=== PATIENT | female | born 1965 | race African-American/Black ===

== ENCOUNTER 2017-01-06 13:17 | Emergency (ER) | payer MEDICARE | END 2017-01-06 14:10 | disposition home or self-care (01) | LOC: SCSER 13:17 | DX: M54.5 Low back pain (principal); E78.5 Hyperlipidemia, unspecified; E11.9 Type 2 diabetes mellitus without complications; E66.9 Obesity, unspecified; F32.9 Major depressive disorder, single episode, unspecified; F17.210 Nicotine dependence, cigarettes, uncomplicated; K21.9 Gastro-esophageal reflux disease without esophagitis; I25.2 Old myocardial infarction; Z86.73 Personal history of transient ischemic attack (TIA), and cerebral infarction without residual deficits; Z85.850 Personal history of malignant neoplasm of thyroid; Z85.42 Personal history of malignant neoplasm of other parts of uterus | CPT/HCPCS: 99283 ==

== ENCOUNTER 2017-10-12 11:21 | Emergency (ER) | payer MEDICARE, MEDICAID ==
[2017-10-12] MEDS ORDERED: HYDROcodone/Acetaminophen 10/325 mg Tablet ONE (13:02)
--- NOTE | 2017-10-12 14:06 | RAD ---
LEFT WRIST 2 VIEWS: HISTORY: Injury. COMPARISON: None. FINDINGS: No acute fracture or malalignment. There is subtle widening of the scapholunate interval. Mild vascular calcifications. IMPRESSION: 1. Subtle widening of the scapholunate interval is age-indeterminate for acute injury. 2. Positive ulnar variance. 3. No acute fracture or malalignment. POS: [facility]
--- NOTE | 2017-10-12 14:07 | RAD ---
RADIOGRAPH LEFT ELBOW FOUR VIEWS: History: 52-year-old female status post acute traumatic injury to the left elbow from fall. FINDINGS: The lateral view is suboptimally positioned and therefore it is difficult to evaluate for displaced j oint capsule. There is no dislocation. No evidence of fracture or any other osseous abnormality. IMPRESSION: Negative. POS: [facility]
--- NOTE | 2017-10-12 14:08 | RAD ---
RADIOGRAPH LEFT ANKLE THREE VIEWS: Date: 10-12-17 History: 52-year-old female status post acute traumatic injury to the left ankle due to fall. FINDINGS: Ankle mortise is symmetrical. Talar dome is maintained. No fracture or subluxation. IMPRESSION: Negative. POS: [facility]
--- NOTE | 2017-10-12 14:09 | RAD ---
RADIOGRAPH LEFT KNEE THREE VIEWS: Date: 10-12-17 History: 52-year-old female status post acute traumatic injury to the left knee from fall. FINDINGS: There is no fracture or dislocation. No joint effusion. IMPRESSION: Negative. POS: [facility]
--- NOTE | 2017-10-12 14:12 | RAD ---
LEFT SHOULDER 3 VIEWS: Date: 10/12/17 HISTORY: Injury. HISTORY: Slip and fall. COMPARISON: Radiograph from 2013. FINDINGS: There appears to be an osseous defect of the posterior glenoid. This may be chronic in nature. The remainder of the shoulder is without acute fracture or malalignment. IMPRESSION: Osseous defect of the posterior glenoid, age indeterminate. This may reflect a prominent osteophyte v ersus an old injury. POS: [facility]
--- NOTE | 2017-10-12 14:15 | RAD ---
TWO VIEWS OF THE LEFT HIP: INDICATION: Slipped and fell with left hip pain. COMPARISON: None. FINDINGS: No acute fracture or subluxation is evident. There a well-circumscribed central lucency involving th e inferior femoral head suspicious for a prominent subchondral cyst-like abnormality. This appears s imilar to a comparison dated 07/20/14. There is mild degenerative arthrosis of the left hip. A phlebo lith can be seen in the left hemipelvis. IMPRESSION: 1. No acute osseous abnormality. 2. Stable subchondral cyst-like abnormality involving the inferior left femoral head. POS: [facility]
== END 2017-10-12 14:28 | disposition home or self-care (01) ==
LOC: ERS 11:21
DX: S43.402A Unspecified sprain of left shoulder joint, initial encounter (principal); S63.502A Unspecified sprain of left wrist, initial encounter; K21.9 Gastro-esophageal reflux disease without esophagitis; E78.5 Hyperlipidemia, unspecified; I25.2 Old myocardial infarction; E11.9 Type 2 diabetes mellitus without complications; I10 Essential (primary) hypertension; Z86.73 Personal history of transient ischemic attack (TIA), and cerebral infarction without residual deficits; F32.9 Major depressive disorder, single episode, unspecified; F17.210 Nicotine dependence, cigarettes, uncomplicated; Z79.899 Other long term (current) drug therapy; Z79.82 Long term (current) use of aspirin; Z79.4 Long term (current) use of insulin; Z71.6 Tobacco abuse counseling; W10.9XXA Fall (on) (from) unspecified stairs and steps, initial encounter
CPT/HCPCS: 29125; 99406

== ENCOUNTER 2018-06-02 18:02 | Emergency (ER) | payer MEDICARE, MEDICAID ==
[2018-06-02 18:47] LABS: Anisocytosis SLIGHT = 6-15 cells (100X) (0-5/hpf); Eosinophils 3 % (0-10); Hemoglobin 13.1 g/dL (12.0-16.0); Hypochromia SLIGHT = 6-15 cells (100X) (0-5/hpf); Lymphocytes 15 % (21-51); MDiff Complete? YES; Mean Corpuscular HGB CONC 30.4 g/dL (32.0-36.0); Mean Corpuscular Hemoglobin 24.2 pg (27.0-31.0); Mean Corpuscular Volume 79.6 fL (78.0-98.0); Mean Platelet Volume 9.3 fL (7.4-10.4); Monocytes 7 % (0-10); Neutrophil 71 % (42-75); Platelet Count 329 thou/uL (130-400); Platelet Morphology Comment Appears Adequate; Reactive Lymphocytes 4 % (0-10); White Blood Cell (WBC) Count 11.2 thou/uL (4.8-10.8)
[2018-06-02 18:55] LABS: ALT (SGPT) 16 U/L (8-55); AST (SGOT) 12 U/L (5-34); Alkaline Phosphatase 182 U/L (40-150); Anion Gap 17 mmol/L (10-20); BUN (Urea Nitrogen) 35 mg/dL (9.8-20.1); Bilirubin, Total 0.1 mg/dL (0.2-1.2); Calc. Creatinine Clearance 0 mL/min (70-130); Calcium 9.1 mg/dL (7.8-10.44); Carbon Dioxide 25 mmol/L (22-29); Chloride 102 mmol/L (98-107); Estimated GFR-MDRD 31; Glucose 244 mg/dL (70-105); Lipase 318 U/L (8-78); Potassium 4.3 mmol/L (3.5-5.1); Sodium 140 mmol/L (136-145)
--- NOTE | 2018-06-02 19:42 | CT ---
EXAM: Abdomen and pelvic CT scan with contrast: HISTORY: COMPARISON: 12/31/2016, 06/10/2012 FINDINGS: Visualized lung bases are clear. There is some minimal esophageal wall thickening of the distal esoph warren but stable in appearance from prior studies. Liver: Unremarkable. Gallbladder:Unremarkable. Pancreas:Unremarkable Spleen:Unremarkable. Adrenal glands:Unremarkable. Kidneys:No renal calculus or acute obstruction.No solid or cystic mass. There is some anterior superficial subcutaneous fat stranding worse on the right side with some assoc iated soft tissue gas, possibly related to prior injury or recent injection. No CT evidence for acute appendicitis. The urinary bladder is unremarkable. No abscess, adenopathy, or abnormal fluid collection within the abdomen or pelvis. IMPRESSION: Minimal wall thickening of the distal esophagus but overall stable. Superficial anterior cutaneous an d subcutaneous fat stranding and minimal right-sided subcutaneous gas density possibly from trauma or injection. Status post hysterectomy. No other acute process.
[2018-06-02 20:42] LABS: Bilirubin Negative (Negative); Blood, Urine Trace (Negative); Clarity Slightly Cloudy (Clear); Glucose, Urine (Dipstick) >=1000 mg/dL (Negative); Leukocyte Negative (Negative); Nitrite Negative (Negative); Protein, Urine (Dipstick) 100 mg/dL (Neg-Trace); Urobilinogen 0.2 mg/dL (0.2-1.0); pH, Urine 6.5 (5.0-9.0)
[2018-06-02 20:43] LABS: Specific Gravity, Urine 1.026 (1.002-1.036)
[2018-06-02 20:49] LABS: Bacteria/HPF 3+ HPF (None Seen); RBC/HPF 0-3 HPF (0-3); Squamous Epithelial 0-3 HPF (0-3)
[2018-06-02 20:50] LABS: Yeast-All Forms 1+ HPF (None Seen)
== END 2018-06-02 22:12 | disposition home or self-care (01) ==
LOC: SCSER 18:02
DX: K85.90 Acute pancreatitis without necrosis or infection, unspecified (principal); I12.9 Hypertensive chronic kidney disease with stage 1 through stage 4 chronic kidney disease, or unspecified chronic kidney disease; N18.9 Chronic kidney disease, unspecified; K21.9 Gastro-esophageal reflux disease without esophagitis; E78.5 Hyperlipidemia, unspecified; I25.2 Old myocardial infarction; E11.9 Type 2 diabetes mellitus without complications; Z86.73 Personal history of transient ischemic attack (TIA), and cerebral infarction without residual deficits; E66.9 Obesity, unspecified; F32.9 Major depressive disorder, single episode, unspecified; F17.210 Nicotine dependence, cigarettes, uncomplicated
CPT/HCPCS: 74177; 80053; 81003; 81015; 83690; 85025; 96360; 96361

== ENCOUNTER 2018-10-05 18:59 | Emergency (ER) | payer MEDICARE, MEDICAID | END 2018-10-05 19:35 | disposition home or self-care (01) | LOC: SCSER 18:59 | DX: K04.4 Acute apical periodontitis of pulpal origin (principal); K02.9 Dental caries, unspecified; K21.9 Gastro-esophageal reflux disease without esophagitis; E78.5 Hyperlipidemia, unspecified; E78.00 Pure hypercholesterolemia, unspecified; I25.2 Old myocardial infarction; Z86.73 Personal history of transient ischemic attack (TIA), and cerebral infarction without residual deficits; E66.9 Obesity, unspecified; F32.9 Major depressive disorder, single episode, unspecified; F17.210 Nicotine dependence, cigarettes, uncomplicated | CPT/HCPCS: 99283 ==

== ENCOUNTER 2019-01-06 12:52 | Observation (INO) | payer MEDICARE, MEDICAID ==
[2019-01-06 14:09] LABS: #Basophils 0.1 thou/uL (0.0-0.2); #Eosinphils 0.2 thou/uL (0.0-0.7); #Lymphocytes 2.9 thou/uL (1.20-3.40); #Monocytes 0.6 thou/uL (0.11-0.59); #Neutrophils 5.6 thou/uL (1.40-6.50); %Basophils 0.9 % (0.0-1.0); %Lymphocytes 31.1 % (21.0-51.0); Hemoglobin 13.8 g/dL (12.0-16.0); Mean Corpuscular HGB CONC 31.5 g/dL (32.0-36.0); Mean Corpuscular Hemoglobin 26.3 pg (27.0-31.0); Mean Corpuscular Volume 83.4 fL (78.0-98.0); Mean Platelet Volume 9.1 fL (7.4-10.4); Platelet Count 360 thou/uL (130-400); Red Blood Cell (RBC) Count 5.23 mill/uL (4.20-5.40); White Blood Cell (WBC) Count 9.3 thou/uL (4.8-10.8)
[2019-01-06 14:30] LABS: ALT (SGPT) 23 U/L (8-55); AST (SGOT) 20 U/L (5-34); Albumin 4.4 g/dL (3.5-5.0); Alkaline Phosphatase 198 U/L (40-110); Anion Gap 16 mmol/L (10-20); BUN (Urea Nitrogen) 20 mg/dL (9.8-20.1); Bilirubin, Total 0.2 mg/dL (0.2-1.2); CK (CPK) 170 U/L (29-168); Calc. Creatinine Clearance 0 mL/min (70-130); Calcium 10.2 mg/dL (7.8-10.44); Carbon Dioxide 24 mmol/L (22-29); Chloride 106 mmol/L (98-107); Estimated GFR-MDRD 34; Globulin 3.9 g/dL (2.4-3.5); Glucose 141 mg/dL (70-105); Lipase 55 U/L (8-78); Potassium 4.8 mmol/L (3.5-5.1); Protein, Total 8.3 g/dL (6.0-8.3); Sodium 141 mmol/L (136-145)
[2019-01-06 14:58] LABS: CKMB 2.7 ng/mL (0-6.6)
[2019-01-06] MEDS ORDERED: Aspirin Chewable 81 MG TAB ONE (15:38)
[2019-01-06] MEDS ORDERED: Nitroglycerin 2% Ointment 1 INCH/1 GM Packet ONE (15:38)
--- NOTE | 2019-01-06 16:00 | RAD ---
Chest AP view INDICATION: Chest pain shortness of breath COMPARISON: October 09, 2016 FINDINGS: Lungs:The lungs are clear Cardiac silhouette:Stable mild cardiomegaly Pulmonary vasculature:Normal Pleural spaces:No pleural effusion or pneumothorax is demonstrated. Upper abdomen:No abnormality seen. Osseous structures: No acute osseous abnormality. Additional findings:None. IMPRESSION: No acute cardiopulmonary abnormality.
[2019-01-06] MEDS ORDERED: Ondansetron ODT 4 MG TAB PO PRN (18:30)
[2019-01-06] MEDS ORDERED: Ondansetron PF 4 MG/2 ML Vial IVP PRN (18:30)
[2019-01-06] MEDS ORDERED: Dextrose 5% in Water 1,000 ML IV PRN (18:34)
[2019-01-06] MEDS ORDERED: Dextrose 50% Abboject 50 ML SYRINGE SLOW IVP PRN (18:34)
[2019-01-06] MEDS ORDERED: HumaLOG 300 UNITS/3 ML VIAL SC PRN ×3 (18:34→19:34)
--- NOTE | 2019-01-06 18:39 | RAD ---
Exam: Left foot 3 views: HISTORY: Aaron, wound, concern for osteomyelitis FINDINGS: Prominent anterior and dorsal soft tissue swelling of the lower leg and foot. There are some degenera tive changes. No acute fracture or dislocation. No overt bony erosive or destructive changes to suggest osteomyelitis. IMPRESSION: Prominent soft tissue swelling. If there is concern for osteomyelitis clinically, follow-up nonemerge nt MRI study should be considered.
[2019-01-06 18:43] VITALS: BMI 44.9
--- NOTE | 2019-01-06 18:52 | ULT ---
ULTRASOUND DOPPLER DUPLEX VENOUS LEFT LOWER EXTREMITY: DATE: 01/06/2019 HISTORY: 53-year-old female with left lower extremity pain TECHNIQUE: Grayscale, color-flow, and spectral analysis, of major veins of left lower extremity. FINDINGS: There is demonstration of blood flow with normal compressibility, of the left common femoral, profund a femoral, greater saphenous, femoral, popliteal, and posterior tibial, veins. IMPRESSION: Negative. No deep venous thrombosis of left lower extremity.
[2019-01-06] MEDS ORDERED: Nitroglycerin 0.4 MG TAB (25 Tab Bottle) SL PRN (19:30)
[2019-01-06 20:26] LABS: Lactic Acid 1.5 mmol/L (0.5-2.2)
[2019-01-06 20:30] LABS: Troponin I 0.034 ng/mL (< 0.028)
[2019-01-06] MEDS ORDERED: Vancomycin 1.5 GRAM/300 ML BAG 1.5 GM in Premix Bag 1 BAG IVPB SCH (20:30)
[2019-01-06] MEDS ORDERED: Atorvastatin Calcium 40 MG TAB PO SCH (21:00)
[2019-01-06] MEDS ORDERED: Non-Formulary Item 1 EACH (Insulin Glargine,Hum.Rec.Anlog [Lantus Solostar] 50 UNITS) SQ SCH (21:00)
[2019-01-06] MEDS: Carvedilol 25 MG TAB PO SCH (21:01)
[2019-01-06] MEDS: Famotidine/PF 20 mg/2ml Vial SLOW IVP SCH (21:03)
[2019-01-06] MEDS: Sodium Chloride 0.9% 1,000 ML IV SCH (21:09)
[2019-01-06] MEDS: Insulin Glargine 50 UNITS in Pre-Filled Syringe 1 EACH SC SCH (21:17)
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
[2019-01-06] MEDS: ceFAZolin 1 GM/D5W 1 GM in Premix Bag 1 BAG IVPB SCH (23:09)
[2019-01-07 05:13] LABS: #Basophils 0.1 thou/uL (0.0-0.2); #Eosinphils 0.2 thou/uL (0.0-0.7); #Lymphocytes 2.6 thou/uL (1.20-3.40); #Monocytes 0.8 thou/uL (0.11-0.59); #Neutrophils 6.2 thou/uL (1.40-6.50); %Basophils 0.5 % (0.0-1.0); %Eosinophils 1.9 % (0.0-10.0); %Lymphocytes 26.4 % (21.0-51.0); %Monocytes 8.1 % (0.0-10.0); %Neutrophils 63.1 % (42.0-75.0); Hemoglobin 11.1 g/dL (12.0-16.0); Mean Corpuscular HGB CONC 31.5 g/dL (32.0-36.0); Mean Corpuscular Hemoglobin 26.1 pg (27.0-31.0); Mean Corpuscular Volume 82.8 fL (78.0-98.0); Mean Platelet Volume 9.1 fL (7.4-10.4); Platelet Count 313 thou/uL (130-400); RBC Distribution Width 13.7 % (11.5-14.5); Red Blood Cell (RBC) Count 4.25 mill/uL (4.20-5.40); White Blood Cell (WBC) Count 9.9 thou/uL (4.8-10.8)
[2019-01-07 05:29] LABS: Anion Gap 12 mmol/L (10-20); BUN (Urea Nitrogen) 23 mg/dL (9.8-20.1); Calc. Creatinine Clearance 60 mL/min (70-130); Carbon Dioxide 25 mmol/L (22-29); Chloride 109 mmol/L (98-107); Estimated GFR-MDRD 35; Glucose 188 mg/dL (70-105); Potassium 4.3 mmol/L (3.5-5.1); Sodium 142 mmol/L (136-145)
[2019-01-07] MEDS: ceFAZolin 1 GM/D5W 1 GM in Premix Bag 1 BAG IVPB SCH (06:16)
--- NOTE | 2019-01-07 07:16 | RAD ---
Radiograph left leg tibia-fibula 2 views: HISTORY: 53-year-old female with soft tissue wound. Rule out osteomyelitis. FINDINGS: There is no periostitis, permeative lesion, osteolytic lesion, osteoblastic lesion, or fracture, invo lving the tibia or fibula. There is soft tissue edema. No subcutaneous emphysema identified. No soft tissue calcifications. IMPRESSION: 1. Soft tissue edema. 2. No osseous abnormality of tibia or fibula identified.
[2019-01-07] MEDS: Sodium Chloride 0.9% 1,000 ML IV SCH (07:37)
[2019-01-07] MEDS: HumaLOG 300 UNITS/3 ML VIAL SC SCH ×2 (07:39→11:43)
[2019-01-07] MEDS ORDERED: Spironolactone 25 MG TAB PO SCH (08:00)
[2019-01-07] MEDS: Famotidine/PF 20 mg/2ml Vial SLOW IVP SCH (08:51)
[2019-01-07] MEDS: Insulin Glargine 50 UNITS in Pre-Filled Syringe 1 EACH SC SCH (08:52)
[2019-01-07] MEDS: Carvedilol 25 MG TAB PO SCH (08:53)
[2019-01-07] MEDS ORDERED: Clopidogrel Bisulfate 75 MG TAB PO SCH (09:00)
[2019-01-07] MEDS ORDERED: Losartan 25 MG TAB PO SCH (09:00)
[2019-01-07] MEDS ORDERED: Metolazone 5 MG TAB PO SCH (09:00)
[2019-01-07 11:08] LABS: Creatinine, Urine 42.33 mg/dL (47-110)
--- NOTE | 2019-01-07 11:50 | ULT ---
Exam: Bilateral renal ultrasound complete: HISTORY: Acute kidney injury COMPARISON: None FINDINGS: Right kidney: 10.3 x 4.4 x 5.3 cm Left kidney: 10.6 x 6.4 x 6.5 cm No renal hydronephrosis. No evidence for abnormal perinephric process. No solid or cystic renal mass. Urinary bladder wall is somewhat thickened up to 0.6 cm with some possible debris in the dependent po rtion, nonspecific. IMPRESSION: No renal hydronephrosis. Possible mild urinary bladder wall thickening and minimal debris.
[2019-01-07] MEDS ORDERED: Nicotine 14 MG PATCH TOP SCH (12:00)
[2019-01-07 12:39] VITALS: BP 146/72; TEMP 97.4
--- NOTE | 2019-01-07 17:45 | CON ---
DATE OF CONSULTATION: REASON FOR CONSULTATION: Elevated creatinine. HISTORY OF PRESENT ILLNESS: This is a very pleasant 53-year-old female, presented to the hospital late last night for chest pain. The patient's baseline creatinine increased from 1.28 to 1.8 today, even though she had a creatinine of 2.0 earlier this year. The patient denies no headache, numbness, tingling, or weakness. PAST MEDICAL HISTORY: Diabetes mellitus, GERD, CKD, hypertension, acute kidney injury, IL, diabetic neuropathy, CVA, depression, , exploratory laparotomy, hysterectomy. SOCIAL HISTORY: No alcohol or drug use. Smokes. FAMILY HISTORY: Family is negative for ESRD. ALLERGIES: REVIEWED. MEDICATIONS: Home medications, list reviewed. Hospital medications, list reviewed. REVIEW OF SYSTEMS: A 15-point review of systems was performed and was negative except for positives noted above. GENERAL: HEAD: NECK: No swelling or lumps. NOSE: No epistaxis or discharge. EYES: No diplopia or pain. RESPIRATORY: CARDIOVASCULAR: GASTROINTESTINAL: /[employer]: MUSCULOSKELETAL: No joint pain. NEUROPSYCHIATIC SYSTEMS: No suicidal ideation. No ideation. SKIN: Denies any rash or ulcer. CONSTITUTIONAL: No fever or chills. PHYSICAL EXAMINATION: CONSTITUTIONAL: The patient is awake and alert. VITAL SIGNS: Afebrile, pulse 75, breathing 16, blood pressure 160/95. GENERAL APPEARANCE AND MENTAL STATUS: Fair. HEAD/NECK: Normocephalic. Atraumatic. EYES: EOMI. No deformity. EARS: Clear. No ulcers. NOSE: Intact. No lesions. MOUTH: Clear. No discharge. THROAT: Clear. No exudate. LUNGS: Clear. No crackles. CARDIAC: S1, S2. No rub. ABDOMEN: Benign. Bowel sounds positive. GENITALIA/RECTUM: Flores absent. BACK/EXTREMITIES: Edema 0+. NEUROLOGICAL: Alert and motor intact. SKIN: LYMPHATICS: LABORATORY DATA: Reviewed. ASSESSMENT: 1. Acute kidney injury with chronic kidney disease, most likely due to progressive hypertensive diabetic disease. Decrease ARB, losartan to 50 mg, and follow creatinine. 2. Edema. Continue diuretics. 3. Congestive heart failure, stable. 4. Anemia, stable. 5. Medication based on GFR appropriate. No indication for dialysis. We will order renal imaging. Job ID: [id number]
[2019-01-07] MEDS ORDERED: Vancomycin HCl 1 GM in Premix Bag 1 BAG IVPB SCH (21:00)
== END 2019-01-07 13:56 | disposition home or self-care (01) ==
LOC: ERS 12:52 → 2SW 16:19
PROVIDERS: ADMIT Internal Medicine; ATTEND Internal Medicine
DX: R07.9 Chest pain, unspecified (principal); N17.9 Acute kidney failure, unspecified; I13.0 Hypertensive heart and chronic kidney disease with heart failure and stage 1 through stage 4 chronic kidney disease, or unspecified chronic kidney disease; I50.9 Heart failure, unspecified; N18.9 Chronic kidney disease, unspecified; E11.22 Type 2 diabetes mellitus with diabetic chronic kidney disease; K21.9 Gastro-esophageal reflux disease without esophagitis; E11.40 Type 2 diabetes mellitus with diabetic neuropathy, unspecified; F32.9 Major depressive disorder, single episode, unspecified; D64.9 Anemia, unspecified; R60.9 Edema, unspecified; E66.01 Morbid (severe) obesity due to excess calories; E78.5 Hyperlipidemia, unspecified; G89.29 Other chronic pain; M54.9 Dorsalgia, unspecified; F17.210 Nicotine dependence, cigarettes, uncomplicated; L03.116 Cellulitis of left lower limb; I25.2 Old myocardial infarction; I69.354 Hemiplegia and hemiparesis following cerebral infarction affecting left non-dominant side; Z68.42 Body mass index [BMI] 45.0-49.9, adult; Z79.02 Long term (current) use of antithrombotics/antiplatelets; Z79.4 Long term (current) use of insulin; Z79.899 Other long term (current) drug therapy; Z85.42 Personal history of malignant neoplasm of other parts of uterus; Z88.5 Allergy status to narcotic agent
CPT/HCPCS: 36415; 36416; 71045; 76770; 80048; 80053; 82550; 82553; 82570; 83605; 83690; 83735; 83880; 84156; 84484; 85025; 93005; 96361; 96365; 96375; 96376; G0378; J0690; J1815; S0028

== ENCOUNTER 2019-05-31 01:47 | Inpatient (IN) | payer MEDICARE, MEDICAID, OTHER ==
[2019-05-31 02:42] LABS: Lactic Acid 1.8 mmol/L (0.5-2.2)
[2019-05-31 03:32] LABS: Troponin I 1.259 ng/mL (< 0.028)
[2019-05-31] MEDS ORDERED: Nitroglycerin 2% Ointment 1 INCH/1 GM Packet ONE (03:37)
[2019-05-31] MEDS ORDERED: Enoxaparin Sodium 80 MG/0.8 ML SYRINGE ONE (03:51)
[2019-05-31] MEDS ORDERED: Enoxaparin Sodium 30 MG/0.3 ML SYRINGE ONE (03:51)
--- NOTE | 2019-05-31 05:15 | HP ---
PRIMARY CARE PHYSICIAN: [facility] in [place]. CHIEF COMPLAINT: Shortness of breath. HISTORY OF PRESENT ILLNESS: This is a 53-year-old female with a past medical history significant for coronary artery disease, inoperable as well as congestive heart failure and COPD, on chronic 4 L of oxygen at home. The patient reports that she intermittently has COPD exacerbations, will become acutely short of breath that does not respond to nebs and so goes into the hospital, usually is admitted to [facility]. The patient was in her normal state of health until yesterday afternoon. She then became acutely short of breath. This did not improve with inhalers or nebulizers at home, so she went to [facility]. There, she was evaluated and was given some inhalers and then was discharged back home. The patient did not improve at home and so, she called an ambulance. Per the ambulance, she was saturating in the 80s on oxygen. They brought her into the [place] [facility]. No noted wheezing, but she was noted to be tachypneic, increased work of breathing. In the [place] [facility], she had 10 puffs of albuterol MDI, was given steroids and then her shortness of breath resolved. She was noted to have congestion on her chest x-ray and had an elevated brain natriuretic peptide, elevated D-dimer, and an elevated troponin of 0.4. So, she was transferred here for further evaluation. The patient now states that she is feeling much better. No shortness of breath at this time on 3.5 L and saturating in the upper 90s to 100%. She denies any chest pain. She said that she does get swelling on and off in her ankles and feet and that the swelling has come back in the last few days. She states she has been compliant with her congestive heart failure medications including her daily Lasix as well as her diabetes medicines. REVIEW OF SYSTEMS: CONSTITUTIONAL: No fevers, no chills. EYES: No double vision or blurred vision. ENT: No congestion, drainage, or sore throat. CARDIOVASCULAR: No chest pain. No palpitations or racing heart. PULMONARY: See HPI. GASTROINTESTINAL: No abdominal pain. No nausea or vomiting. No diarrhea or constipation. GENITOURINARY: No dysuria or hematuria. MUSCULOSKELETAL: She has chronic diffuse body muscle aches from fibromyalgia, but no new complaints. SKIN: No rashes or other lesions that she has noted. NEUROLOGIC: She has chronic left-sided weakness since some strokes years ago and she has a congenital lazy eye. PAST MEDICAL HISTORY: 1. Diabetes mellitus, type 2, insulin dependent. 2. Coronary artery disease, not stentable per Dr. Lebron's catheterization some years ago. 3. Congestive heart failure, unknown type, with a normal ejection fraction in 2015. 4. Previous CVA with residual left-sided weakness. 5. Diabetic neuropathy. 6. Fibromyalgia. 7. Hypertension. 8. Hyperlipidemia. 9. Gastroesophageal reflux disease. 10. Morbid obesity. 11. Previous myocardial infarction. 12. Chronic back pain. 13. Uterine cancer, status post resection. PAST PSYCHIATRIC HISTORY: Depression. PAST SURGICAL HISTORY: 1. . 2. Exploratory laparotomy with removal of abdominal tumor. 3. Hysterectomy. SOCIAL HISTORY: The patient reports smoking half pack of cigarettes per day. No alcohol or illicit drug use. She is single. She is a full code. Reports that her sister would be her medical decision maker should she be incapacitated. Her name is Kimberly Ag. FAMILY HISTORY: Positive for mother with coronary artery disease. Father from diabetes, and multiple other family members with type 2 diabetes mellitus. ALLERGIES: TRAMADOL. CURRENT MEDICATIONS: 1. Atorvastatin 80 mg at night. 2. Aspirin 81 mg daily. 3. Carvedilol 25 mg twice a day. 4. Amlodipine 10 mg daily. 5. Furosemide 40 mg daily. 6. Plavix 75 mg daily. 7. Valsartan 320 mg daily. 8. Hydrochlorothiazide 12.5 mg daily. 9. Sertraline 50 mg daily. 10. Hydralazine 25 mg 3 times a day. 11. Trulicity 1.5 mg subcutaneous once a week. 12. Lyrica 100 mg 3 times a day. 13. Tylenol with Codeine No.3 one tablet every 4 hours as needed for pain. 14. Lantus SoloSTAR 40 units subcutaneous two times a day. 15. Humalog KwikPen, used to be on 20 units subcutaneous three times a day, but has stopped this recently. 16. Invokana, unknown dose. PHYSICAL EXAMINATION: VITAL SIGNS: Blood pressure 176/100, pulse 101, respirations 17, temperature 98.4, and O2 saturation 100% on 3.5 L. GENERAL: This is a well-developed, obese, female, in no acute distress. HEENT: Pupils are equal, round, and reactive to light. Oropharynx clear without lesions, erythema, or exudate. NECK: Supple. No lymphadenopathy. No thyroid nodules or enlargement. Difficult to appreciate if there is any JVD due to obesity. HEART: Regular rhythm. Mildly tachycardic. No murmurs, rubs, or gallops. LUNGS: Clear to auscultation bilaterally. No wheezes, crackles, or rhonchi. It is difficult to appreciate the breath sounds very well due to her obesity. ABDOMEN: Soft, obese, nontender to palpation. Normoactive bowel sounds. No hepatosplenomegaly or other masses. EXTREMITIES: No clubbing or cyanosis. She does have 1+ pitting edema of feet and ankles bilaterally. IMAGING DATA: EKG; the patient's EKG done in the emergency room shows sinus tachycardia with some flattening of the T-waves in the lateral leads, also with some left atrial enlargement. Chest x-ray; I did review the chest x-ray done in the emergency room along with the radiologist's report. It does show some mild congestive heart failure with increased pulmonary vascular markings. LABORATORY DATA: White blood cell count 16,000 with 84% neutrophils. The rest of the CBC was normal. Coagulation profile shows an elevated D-dimer of 1.46. Complete metabolic panel is notable for a chloride of 109, a carbon dioxide of 21, and creatinine of 1.74, which is chronic for her. Alkaline phosphatase of 145 and albumin of 3.3. The rest was normal. Brain natriuretic peptide was elevated at 484. This has never been elevated in our hospital on checks in the past including last December. Lactic acid was elevated at 2.7, recheck after transferred to our hospital here was 1.8. Troponin was elevated at 0.42 initially at [facility], recheck in our hospital just now was 1.2. CK-MB was elevated at 8.0. ASSESSMENT: 1. [id number] myocardial infarction. This is likely related to acute worsening of her congestive heart failure. No chest pain at this time. This may be a type 2 myocardial infarction. I will go ahead and start Lovenox subcu 1 mg/kg, and we will consult Dr. Apple in the morning. 2. Acute on chronic congestive heart failure. We will check an echocardiogram, and we will put on Lasix 40 mg IV twice a day and we will do a fluid restriction on her diet. 3. Chronic obstructive pulmonary disease exacerbation. We will continue Solu-Medrol 40 mg IV q.6 hours and inhalers, albuterol and Atrovent as well as continue her home oxygen. 4. Elevated D-dimer. We will check a V/Q scan due to her chronic renal insufficiency to make sure she does not have a pulmonary embolism setting off the above issues. 5. Chronic renal failure. The patient's creatinine seems about baseline right now. We will monitor closely. We will continue home medications. 6. Hypertension. Resume home medications. 7. Hyperlipidemia. Resume patient's statin. 8. Coronary artery disease. We will resume patient's aspirin and Plavix. 9. Gastroesophageal reflux disease. We will put the patient on Protonix daily. 10. Deep venous thrombosis prophylaxis. The patient is already on Lovenox. 11. Diabetes mellitus, type 2, insulin dependent. We will resume patient's Lantus, put on a moderate insulin sliding scale q.a.c. and at bedtime with fingerstick blood sugars and put on a diabetic diet. 12. Code status. The patient is a full code. Should she be incapacitated, her sister would be her medical decision maker. Job ID: [id number]
[2019-05-31] MEDS ORDERED: hydrALAZINE 20 MG/ML VIAL ONE (05:55)
[2019-05-31 06:24] LABS: Troponin I 3.206 ng/mL (< 0.028)
[2019-05-31] MEDS ORDERED: Acetaminophen 325 MG TAB PO PRN (07:28)
[2019-05-31] MEDS ORDERED: HumaLOG 300 UNITS/3 ML VIAL SC PRN (07:28)
[2019-05-31] MEDS ORDERED: Acetaminophen/Codeine 30-300mg Tablet PO PRN (07:28)
[2019-05-31] MEDS ORDERED: Guaifenesin DM 100-10/5 ML UDCUP PO PRN (07:28)
[2019-05-31] MEDS ORDERED: Acetaminophen 650 MG Suppository PR PRN (07:28)
[2019-05-31] MEDS ORDERED: Ondansetron ODT 4 MG TAB PO PRN (07:28)
[2019-05-31] MEDS ORDERED: Dextrose 5% in Water 1,000 ML IV PRN (07:28)
[2019-05-31] MEDS ORDERED: Ondansetron PF 4 MG/2 ML Vial IVP PRN (07:28)
[2019-05-31] MEDS ORDERED: Dextrose 50% Abboject 50 ML SYRINGE SLOW IVP PRN (07:28)
[2019-05-31] MEDS ORDERED: Albuterol Sulfate 2.5 mg/3 ml Neb NEB PRN (07:28)
[2019-05-31] MEDS ORDERED: Senokot S 8.6-50 MG TAB PO PRN (07:28)
[2019-05-31] MEDS ORDERED: Ipratropium Oral Inhaler INH PRN (07:28)
[2019-05-31] MEDS ORDERED: Furosemide 40 MG/4 ML VIAL SLOW IVP SCH (08:15)
[2019-05-31] MEDS: Propofol 1,000 MG/100 ML VIAL IV PRN ×5 (10:00→21:43)
[2019-05-31] MEDS ORDERED: Lorazepam 2 MG/ML VIAL ONE (10:00)
[2019-05-31] MEDS ORDERED: fentaNYL Citrate/PF 2,000 MCG in Sodium Chloride 0.9% 60 ML IV SCH ×2 (10:05→10:08)
[2019-05-31] MEDS ORDERED: Fentanyl BOLUS 250 ML IVPB PRN ×2 (10:05→10:08)
[2019-05-31] MEDS ORDERED: Morphine 2 MG/ML SYRINGE SLOW IVP PRN (10:08)
[2019-05-31] MEDS ORDERED: Propofol BOLUS 1,000 MG/100 ML VIAL IV PRN (10:08)
[2019-05-31] MEDS ORDERED: Lorazepam 2 MG/ML VIAL SLOW IVP PRN (10:08)
[2019-05-31] MEDS ORDERED: DISCONTINUE PREVIOUS NARCOTIC PAIN MEDICATIONS AND BENZODIAZEPINES FS SCH (10:08)
[2019-05-31 10:12] LABS: ALV-art Gradient 412.075 (0-20); Actual Bicarbonate (HCO3a) 26.8 mEq/L (22-28); Base Excess (BEa) -1.2 mEq/L (-2.0 to +3.0); CO2 Tension 60.1 mmHg (35.0-45.0); Carboxyhemoglobin (COHb) 0.5 gm% (0.0-3.0); Hemoglobin (Hb) 13.1 g/dL (12.0-16.0); O2 Tension (PaO2) 83.2 mmHg (80.0-100.0); Potassium - ABG Lab 3.93 mmol/L (3.70-5.30); Puncture Site RRA; pH, Arterial 7.27 (7.35-7.45)
--- NOTE | 2019-05-31 10:16 | PDOC.HOSPP ---
- Subjective Encounter Date: 05/31/19 Encounter Time: 10:14 Subjective: Ms. Hu was seen today in follow-up. She was having extreme difficulty breath. She denies chest pain. - Objective Vital Signs & Weight: Vital Signs (12 hours) Temp Pulse Resp BP Pulse Ox 05/31/19 07:50 98.0 F 103 H 23 H 177/88 H 98 05/31/19 07:05 105 H 18 151/72 H 96 Weight Weight 245 lb 9.6 oz Additional Labs: Accuchecks 05/31/19 08:13 POC Glucose 227 H - Exam Eye: PERRL Heart: no murmur, no gallops Respiratory: rhonchi, wheezes (+ bilateral wheezing and rhonchi,) Gastrointestinal: soft, non-tender, non-distended, normal bowel sounds, no palpable masses Extremities: 1+ LE edema Hosp A/P (1) Acute respiratory failure with hypoxia and hypercapnia Code(s): J96.01 - ACUTE RESPIRATORY FAILURE WITH HYPOXIA; J96.02 - ACUTE RESPIRATORY FAILURE WITH HYPERCAPNIA Status: Acute (2) NSTEMI (non-ST elevated myocardial infarction) Code(s): I21.4 - NON-ST ELEVATION (NSTEMI) MYOCARDIAL INFARCTION Status: Acute (3) Diabetes mellitus, type II Status: Acute (4) Hypertension Code(s): I10 - ESSENTIAL (PRIMARY) HYPERTENSION Status: Acute Qualifiers: Hypertension type: essential hypertension Qualified Code(s): I10 - Essential (primary) hypertension - Plan * Acute respiratory failure with hypoxcemia and hypercapnea- She was moved to the ICU emergently , and code blue called for intubation * Patient has been intubated, in the interim CBC CMP and ABG , PT/PTT have been ordered * Case discussed with PCCM * NSTEMI- cardiology consulted, Echo pending, will continue aspirin and lovenox * Will place on steroids IV, Antibiotics, and Duonebs * HTN- prn medication for blood pressure.
[2019-05-31] MEDS: methylPREDNISolone Sod Succ 40 MG VIAL IVP SCH ×3 (10:24→19:35)
[2019-05-31] MEDS ORDERED: cefTRIAXone\\ROCEPHIN 1 GM in Sodium Chloride 0.9% 100 ML IVPB SCH (10:30)
[2019-05-31] MEDS ORDERED: Azithromycin 500 MG in Sodium Chloride 0.9% 250 ML 250 ML IVPB SCH ×2 (10:30→10:45)
[2019-05-31] MEDS ORDERED: Albuterol Sulfate 2.5 mg/3 ml Neb NEB SCH (10:30)
[2019-05-31] MEDS ORDERED: Ventilator Sedation Protocol 1 EACH FS ONE (10:31)
[2019-05-31 10:44] LABS: #Lymphocytes 1.2 thou/uL (1.20-3.40); #Monocytes 0.4 thou/uL (0.11-0.59); #Neutrophils 10.3 thou/uL (1.40-6.50); %Basophils 0.1 % (0.0-1.0); %Lymphocytes 10.1 % (21.0-51.0); %Monocytes 3.3 % (0.0-10.0); %Neutrophils 86.6 % (42.0-75.0); Hemoglobin 12.1 g/dL (12.0-16.0); Mean Corpuscular HGB CONC 31.5 g/dL (32.0-36.0); Mean Corpuscular Hemoglobin 26.3 pg (27.0-31.0); Mean Corpuscular Volume 83.4 fL (78.0-98.0); Mean Platelet Volume 11.4 fL (7.4-10.4); Platelet Count 266 thou/uL (130-400); RBC Distribution Width 14.8 % (11.5-14.5); Red Blood Cell (RBC) Count 4.59 mill/uL (4.20-5.40); White Blood Cell (WBC) Count 11.9 thou/uL (4.8-10.8)
[2019-05-31] MEDS ORDERED: hydrALAZINE 20 MG/ML VIAL SLOW IVP PRN (10:46)
[2019-05-31 10:52] LABS: INR-International Normal Ratio 0.9; Prothrombin Time 12.4 SEC (12.0-14.7)
[2019-05-31 10:53] LABS: PTT 33.2 SEC (22.9-36.1)
[2019-05-31] MEDS: Carvedilol 25 MG TAB PO SCH ×2 (10:59→16:15)
[2019-05-31] MEDS: Clopidogrel Bisulfate 75 MG TAB PO SCH (11:00)
[2019-05-31] MEDS: hydrALAZINE 25 MG TAB PO SCH ×3 (11:00→19:36)
[2019-05-31] MEDS: Aspirin Chewable 81 MG TAB PO SCH (11:00)
[2019-05-31] MEDS: Amlodipine 10 MG TAB PO SCH (11:00)
[2019-05-31] MEDS: Pregabalin 50 MG CAP PO SCH ×3 (11:01→19:36)
[2019-05-31] MEDS: Valsartan 80 MG TAB PO SCH (11:01)
[2019-05-31 11:07] LABS: ALT (SGPT) 28 U/L (8-55); AST (SGOT) 31 U/L (5-34); Alkaline Phosphatase 151 U/L (40-110); Anion Gap 17 mmol/L (10-20); BUN (Urea Nitrogen) 23 mg/dL (9.8-20.1); Bilirubin, Total 0.2 mg/dL (0.2-1.2); Calc. Creatinine Clearance 75 mL/min (70-130); Carbon Dioxide 24 mmol/L (22-29); Chloride 110 mmol/L (98-107); Estimated GFR-MDRD 43; Globulin 3.4 g/dL (2.4-3.5); Glucose 250 mg/dL (70-105); Potassium 3.5 mmol/L (3.5-5.1); Protein, Total 6.4 g/dL (6.0-8.3); Sodium 147 mmol/L (136-145)
[2019-05-31] MEDS ORDERED: PROPOFOL 200 MG/20 ML VIAL ONE (11:38)
[2019-05-31] MEDS ORDERED: Succinylcholine Chloride 20 MG/ML 10 ml SYRINGE FS ONE (11:38)
[2019-05-31] MEDS: HumaLOG 300 UNITS/3 ML VIAL SC PRN ×2 (11:44→16:21)
--- NOTE | 2019-05-31 12:03 | CON ---
DATE OF CONSULTATION: HISTORY OF PRESENT ILLNESS: Kayla Hu is a 53-year-old morbidly obese female, who presented to the ER with shortness of breath. She was on a monitored bed when this morning condition got markedly worse, marked respiratory distress, marked tightness. She was intubated by Anesthesia. She is now in the ICU, reason for consult. Unable to get any history at this time, but multiple extensive notes from the ER last night states that she was at [facility] in [place] 24 hours ago where apparently serology for coronavirus was done, results pending, for shortness of breath. Discharged home when she was better, presented last night again with additional wheezing and shortness of breath. She is clearly a former smoker. She was seen by us in 2013 following a uterine surgery. PAST MEDICAL HISTORY: Thyroid cancer, morbid obesity, asthma, coronary artery disease, diabetes, hypertension, previous CVA with apparently some weakness, chronic back pain, morbid obesity, depression. Apparently, she is still smoking half pack a day. No alcohol abuse. PAST SURGICAL HISTORY: Including multiple as outlined, , lap, hysterectomy. HOME MEDICATIONS: Include 1. Invokana 300. 2. Lipitor 80. 3. Coreg 25. 4. Cozaar 50. 5. Insulin 50 b.i.d. 6. Plavix. 7. Zoloft 50. 8. . 9. Metformin. 10. Spironolactone. ALLERGIES: TRAMADOL. REVIEW OF SYSTEMS: Otherwise, unobtainable. PHYSICAL EXAMINATION: Intubated, on the vent. VITAL SIGNS: Blood pressure 130/80, pulse 90, respiratory rate 20s, temperature 98. CHEST: Prolonged expiration, no wheezing. CARDIAC: Normal S1, S2. No gallops. ABDOMEN: Massive. LABORATORY DATA: PO2 83, pCO2 of 60, rate of 16, 50%, tidal volume 500, pressure support of 20. Troponin is elevated at 3.2. BNP 480. Influenza negative. Additional lab shows x-ray was clear. White count 16,000, H and H of 12 and 41, platelet count is normal. Renal function shows creatinine is 1.8, which is probably baseline. BUN 20. Sodium 141, alkaline phosphatase 198, lipase is 318 in the past. Glucose is elevated at 384. IMPRESSION: 1. Respiratory failure, morbid obesity, chronic obstructive pulmonary disease, asthma exacerbation, possible pneumonia. 2. Abnormal troponin, previous normal EF. 3. Probably sleep apnea, azotemia, diabetes. PLAN: Continue vent support, neb treatments every 4 hours. Steroids as outlined. Pulmonary Critical Care will follow while in the ICU. This is a critical care note, 45 minutes. Job ID: [id number]
[2019-05-31] MEDS ORDERED: Phenylephrine 10 MG/ML VIAL ONE (13:31)
[2019-05-31] MEDS: Insulin Glargine 40 UNITS in Pre-Filled Syringe 1 EACH SC SCH ×2 (14:03→19:41)
[2019-05-31] MEDS: Albuterol Sulfate 2.5 mg/3 ml Neb NEB SCH ×6 (14:03→22:48)
[2019-05-31] MEDS: Furosemide 40 MG/4 ML VIAL SLOW IVP SCH (14:25)
[2019-05-31] MEDS ORDERED: Nitroglycerin 2% Ointment 1 INCH/1 GM Packet TOP SCH (17:15)
[2019-05-31] MEDS ORDERED: Potassium Chloride 20 MEQ TAB PO SCH (17:15)
[2019-05-31] MEDS: Atorvastatin Calcium 40 MG TAB PO SCH (19:35)
[2019-05-31] MEDS: Enoxaparin Sodium 100 MG/ML SYRINGE SC SCH (19:37)
[2019-05-31] MEDS: Nitroglycerin 2% Ointment 1 INCH/1 GM Packet TOP SCH (21:44)
--- NOTE | 2019-05-31 23:50 | CON ---
DATE OF CONSULTATION: 05/31/2019 REASON FOR CONSULTATION: Congestive heart failure, non ST-elevation myocardial infarction. HISTORY OF PRESENT ILLNESS: Ms. Hu is a 53-year-old woman with a history of inoperable coronary disease, hypertension, renal insufficiency and diabetes, admitted with shortness of breath and pulmonary edema. The patient was brought here to the hospital with severe difficulty breathing. She had history of COPD. She had been at [facility] recently. The patient yesterday afternoon became very short of breath. Did somewhat improve with nebulized therapy. Went to [facility], but then discharged home oxygen saturation was in the 80s. She went to [place] emergency room. She was not noted to be wheezing, but was very tachypneic. She was given steroids. She was brought here to the hospital, where she worsened and required intubation. REVIEW OF SYSTEMS: Not obtainable. She is intubated on the ventilator. PAST MEDICAL HISTORY: 1. Diabetes. 2. Coronary disease, previous catheterization showing diffuse inoperable coronary disease. 3. Congestive heart failure, diastolic in the past. 4. Previous stroke. 5. Hyperlipidemia. 6. Morbid obesity. Psychiatric history of depression. PAST SURGICAL HISTORY: 1. section. 2. Exploratory laparotomy. SOCIAL HISTORY: Does continue to smoke half pack cigarettes per day. No drugs or alcohol. FAMILY HISTORY: Mother with coronary disease. MEDICATIONS: Prior to admission: 1. Aspirin 81 mg a day. 2. Atorvastatin 80 mg a day. 3. Carvedilol 25 mg twice a day. 4. Amlodipine 10 mg. 5. Lasix 40 mg. 6. Plavix. 7. Valsartan. 8. Hydrochlorothiazide. 9. Hydralazine. 10. Trulicity. 11. Lyrica. 12. Lantus insulin. PHYSICAL EXAMINATION: Not done. The patient is a possible COVID (rule out). Therefore, in accordance with current recommendations, contacts are being minimized with these patients until the definitive diagnosis is being made. Looking at the chart, she was not noted to have wheezes and she was not noted to have murmur, rub, gallop or edema. The EKG showed sinus rhythm. EKG did not show any acute changes, some nonspecific T-wave changes in V5 and V6. Chest x-ray showed increased vascular markings. PERTINENT LABORATORY DATA: Troponin 2.97. Potassium was 3.5. BNP 44. Hemoglobin is 12.1, hematocrit 38.3. ASSESSMENT: 1. Congestive heart failure episode. 2. Chronic obstructive pulmonary disease. 3. Inoperable coronary disease. 4. Non ST elevation myocardial infarction, likely demand ischemia. PLAN: 1. She is on renal insufficiency plan. The patient is on carvedilol. 2. She is receiving Lasix. 3. We will need to give her potassium. 4. She is on valsartan. 5. Add nitrates to help with blood pressure. We will follow with you. Job ID: [id number]
[2019-06-01] MEDS: Albuterol Sulfate 2.5 mg/3 ml Neb NEB SCH ×5 (01:03→08:13)
[2019-06-01] MEDS: methylPREDNISolone Sod Succ 40 MG VIAL IVP SCH ×4 (01:37→20:37)
[2019-06-01] MEDS: Propofol 1,000 MG/100 ML VIAL IV PRN ×6 (01:42→23:55)
[2019-06-01 04:22] LABS: #Lymphocytes 1.4 thou/uL (1.20-3.40); #Monocytes 0.7 thou/uL (0.11-0.59); #Neutrophils 10.5 thou/uL (1.40-6.50); %Basophils 0.1 % (0.0-1.0); %Monocytes 5.8 % (0.0-10.0); %Neutrophils 83.2 % (42.0-75.0); Hemoglobin 11.3 g/dL (12.0-16.0); Mean Corpuscular HGB CONC 31.5 g/dL (32.0-36.0); Mean Corpuscular Hemoglobin 25.6 pg (27.0-31.0); Mean Corpuscular Volume 81.1 fL (78.0-98.0); Mean Platelet Volume 10.8 fL (7.4-10.4); Platelet Count 267 thou/uL (130-400); RBC Distribution Width 14.2 % (11.5-14.5); Red Blood Cell (RBC) Count 4.41 mill/uL (4.20-5.40); White Blood Cell (WBC) Count 12.6 thou/uL (4.8-10.8)
[2019-06-01 04:33] LABS: Anion Gap 15 mmol/L (10-20); BUN (Urea Nitrogen) 26 mg/dL (9.8-20.1); Calc. Creatinine Clearance 79 mL/min (70-130); Calcium 8.8 mg/dL (7.8-10.44); Carbon Dioxide 22 mmol/L (22-29); Chloride 113 mmol/L (98-107); Estimated GFR-MDRD 46; Glucose 146 mg/dL (70-105); Sodium 147 mmol/L (136-145)
[2019-06-01] MEDS ORDERED: Potassium Phosphate 15 MMOL in Sodium Chloride 0.9% 250 ML 250 ML IV PRN (04:59)
[2019-06-01] MEDS ORDERED: Magnesium Oxide 400 MG TAB PO PRN ×2 (04:59)
[2019-06-01] MEDS ORDERED: PHOS-NAK 1 PKT PACK PO PRN ×2 (04:59)
[2019-06-01] MEDS ORDERED: Potassium Phosphate 9 MMOL in Sodium Chloride 0.9% 100 ML IVPB PRN (04:59)
[2019-06-01] MEDS ORDERED: Potassium Chloride 40 MEQ in Premix Bag 1 BAG IVPB PRN (04:59)
[2019-06-01] MEDS ORDERED: Potassium Chloride 20 MEQ TAB PO PRN (04:59)
[2019-06-01] MEDS ORDERED: Potassium Phosphate 12 MMOL in Sodium Chloride 0.9% 250 ML 250 ML IV PRN (04:59)
[2019-06-01] MEDS ORDERED: CCU ELECTROLYTE REPLACEMENT PROTOCOL FS PRN (04:59)
[2019-06-01] MEDS ORDERED: Magnesium 2 GM/50 ML 2 GM in Premix Bag 1 BAG IVPB PRN (04:59)
[2019-06-01] MEDS ORDERED: Potassium Chloride 40 MEQ in Sodium Chloride 0.9% 250 ML 250 ML IVPB PRN (04:59)
[2019-06-01] MEDS: Nitroglycerin 2% Ointment 1 INCH/1 GM Packet TOP SCH ×3 (05:11→20:40)
[2019-06-01] MEDS: Furosemide 40 MG/4 ML VIAL SLOW IVP SCH ×2 (05:11→15:50)
[2019-06-01 08:11] LABS: Actual Bicarbonate (HCO3a) 24.3 mEq/L (22-28); Base Excess (BEa) 2.3 mEq/L (-2.0 to +3.0); CO2 Tension 29.8 mmHg (35.0-45.0); Calcium, Ionized 1.12 mmol/L (1.12-1.30); Carboxyhemoglobin (COHb) 0.2 gm% (0.0-3.0); Hemoglobin (Hb) 11.8 g/dL (12.0-16.0); O2 Tension (PaO2) 99.6 mmHg (80.0-100.0); Potassium - ABG Lab 3.11 mmol/L (3.70-5.30); pH, Arterial 7.53 (7.35-7.45)
--- NOTE | 2019-06-01 08:11 | RAD ---
Exam: Chest one view HISTORY:Shortness of breath. Comparison: 05/30/2019 FINDINGS: Lines and tubes: Interval placement of endotracheal tube terminating just beyond the clavicle. Nasoga stric tube extends beyond the diaphragm. Distal tip is not seen. Cardiac silhouette:Upper normal cardiac silhouette Aorta: Unremarkable Pulmonary vessels: Normal Costophrenic angles: Clear LUNGS: Patchy interstitial opacities throughout the lung parenchyma with more focal alveolar infiltra te in the right lower lobe. Pneumothorax: None Osseous abnormalities: None IMPRESSION: 1. Interval placement of endotracheal and nasogastric tube. 2. Patchy interstitial opacities with more focal alveolar infiltrate in the right lower lobe. Correla te for edema versus pneumonia.
[2019-06-01 08:19] LABS: Puncture Site RRA
[2019-06-01] MEDS: Pregabalin 50 MG CAP PO SCH ×3 (08:42→20:39)
[2019-06-01] MEDS: Clopidogrel Bisulfate 75 MG TAB PO SCH (08:42)
[2019-06-01] MEDS: Aspirin Chewable 81 MG TAB PO SCH (08:43)
[2019-06-01] MEDS: hydrALAZINE 25 MG TAB PO SCH ×3 (08:43→20:38)
[2019-06-01] MEDS: Carvedilol 25 MG TAB PO SCH ×2 (08:44→17:30)
[2019-06-01] MEDS: Amlodipine 10 MG TAB PO SCH (08:44)
[2019-06-01] MEDS: Azithromycin 500 MG in Sodium Chloride 0.9% 250 ML 250 ML IVPB SCH (08:45)
[2019-06-01] MEDS: Insulin Glargine 40 UNITS in Pre-Filled Syringe 1 EACH SC SCH ×2 (08:47→20:45)
[2019-06-01] MEDS: cefTRIAXone\\ROCEPHIN 1 GM in Sodium Chloride 0.9% 100 ML IVPB SCH (08:47)
[2019-06-01] MEDS: Valsartan 80 MG TAB PO SCH (08:47)
[2019-06-01] MEDS: Enoxaparin Sodium 100 MG/ML SYRINGE SC SCH (08:48)
[2019-06-01] MEDS ORDERED: Albuterol Sulfate 2.5 mg/3 ml Neb NEB SCH (09:00)
[2019-06-01] MEDS ORDERED: Albuterol Sulfate 2.5 mg/3 ml Neb NEB PRN (09:07)
--- NOTE | 2019-06-01 09:49 | PRG ---
DATE OF SERVICE: 06/01/2019 SUBJECTIVE: Kayla Hu, morbidly obese female, who is intubated with progressive respiratory failure. Still is agitated when the sedation is wearing off. She is trying to sit up in the bed. OBJECTIVE: VITAL SIGNS: , maximum temperature 96, blood pressure 146/86, respiratory rate 18, . CHEST: Crackles without any wheezing. CARDIAC: Normal S1 and S2. No gallops. ABDOMEN: No masses. LABORATORY DATA: White count 12,000, hematocrit 35, platelet count is normal. PO2 is 99, pCO2 29, , rate of 16, 35%, 500 tidal volume, pressure support of 20. Creatinine 1.4, BUN is 26. X-ray shows questionable bibasilar infiltrate. IMPRESSION: Respiratory failure, pneumonia, morbid obesity, chronic obstructive pulmonary disease, coronary artery disease, congestive heart failure, major anxiety. PLAN: Awaiting serology. If this is negative, we will start weaning. Vent is being adjusted. Otherwise, PT, supportive care. We will follow. One-half hour of critical time. Job ID: [id number]
--- NOTE | 2019-06-01 10:28 | PDOC.HOSPP ---
- Subjective Encounter Date: 06/01/19 Encounter Time: 10:26 Subjective: Ms. Hu was seen today in follow-up of respiratory failure. She is intubated. She is awake and alert. She follows commands. She does not appear in distress. - Objective Vital Signs & Weight: Vital Signs (12 hours) Pulse Resp BP 06/01/19 08:44 91 146/83 H 06/01/19 08:43 88 146/83 H 06/01/19 08:14 91 146/83 H 06/01/19 06:00 24 H 06/01/19 04:27 95 06/01/19 04:00 20 06/01/19 02:31 95 142/73 H 06/01/19 02:00 16 06/01/19 01:03 96 140/75 06/01/19 00:00 20 Weight Admit Weight 245 lb Weight 241 lb 10.026 oz Most Recent Monitor Data Heart Rate from ECG 98 NIBP 137/79 NIBP BP-Mean 98 Respiration from ECG 22 SpO2 99 I&O: 05/31/19 06/01/19 06/02/19 06:59 06:59 06:59 Intake Total 1137 30 Output Total 3985 570 Balance -4423 -540 Result Diagrams: 06/01/19 03:24 06/01/19 03:24 Additional Labs: Accuchecks 06/01/19 05/31/19 05/31/19 09:30 19:45 16:24 POC Glucose 140 H 180 H 175 H Hospitalist ROS - Medication Medications: Active Medications Generic Name Dose Route Start Last Admin Trade Name Freq PRN Reason Stop Dose Admin Albuterol/Ipratropium 3 ml 05/31/19 10:30 06/01/19 08:13 Duoneb NEB 3 ml [id number] MAXINE Administration Aspirin 81 mg 05/31/19 09:00 06/01/19 08:43 Aspirin Chewable PO 81 mg DAILY MAXINE Administration Atorvastatin Calcium 80 mg 05/31/19 21:00 05/31/19 19:35 Lipitor PO 80 mg HS MAXINE Administration Carvedilol 25 mg 05/31/19 08:00 06/01/19 08:44 Coreg PO 25 mg BID-WM MAXINE Administration Clopidogrel Bisulfate 75 mg 05/31/19 09:00 06/01/19 08:42 Plavix PO 75 mg DAILY MAXINE Administration Furosemide 40 mg 05/31/19 14:00 06/01/19 05:11 Lasix SLOW IVP 40 mg 0600,1400 MAXINE Administration Hydralazine HCl 25 mg 05/31/19 09:00 06/01/19 08:43 Apresoline PO 25 mg TID MAXINE Administration Hydralazine HCl 10 mg 05/31/19 10:46 05/31/19 12:49 Apresoline SLOW IVP 10 mg Q4H PRN Administration SBP > 180 and HR < 70 Insulin Glargine 40 units/ 0.4 mls @ 0 mls/hr 05/31/19 21:00 05/31/19 19:41 Miscellaneous Medication SC 0.4 mls HS MAXINE Administration Insulin Glargine 40 units/ 0.4 mls @ 0 mls/hr 05/31/19 09:00 06/01/19 08:47 Miscellaneous Medication SC 0.4 mls QAM MAXINE Administration Fentanyl Citrate 2,000 mcg/ 100 mls @ 0 mls/hr 05/31/19 10:05 05/31/19 10:41 Sodium Chloride IV 06/30/19 10:05 100 mls INF MAXINE Administration Protocol Per Protocol Ceftriaxone Sodium 1 gm/ 100 mls @ 200 mls/hr 06/01/19 09:00 06/01/19 08:47 Sodium Chloride IVPB 100 mls 0900 MAXINE Administration Azithromycin 500 mg/ Sodium 250 mls @ 250 mls/hr 06/01/19 09:00 06/01/19 08: 45 Chloride IVPB 250 mls 0900 MAXINE Administration Potassium Chloride 40 meq/ 270 mls @ 135 mls/hr 06/01/19 04:59 06/01/19 05:28 Sodium Chloride IVPB 270 mls ASDIR PRN Administration FOR SERUM K+ 2.5 - 3.5 Insulin Human Lispro 0 units 05/31/19 07:28 05/31/19 16:21 Humalog SC 2 unit .MODERATE SLIDING SC PRN Administration Moderate Correctional Scale Methylprednisolone Sodium Succinate 40 mg 05/31/19 08:00 06/01/19 08:45 Solu-Medrol IVP 40 mg 0200,0800,1400,2000 MAXINE Administration Nitroglycerin 1 inch 05/31/19 22:00 06/01/19 05:11 Nitro-Bid 2% Ointment TOP 1 inch Q8HR MAXINE Administration Pantoprazole Sodium 40 mg 05/31/19 09:00 06/01/19 08:41 Protonix PO 40 mg DAILY MAXINE Administration Pregabalin 100 mg 05/31/19 09:00 06/01/19 08:42 Lyrica PO 100 mg TID MAXINE Administration Propofol 1,000 mg 05/31/19 10:08 06/01/19 08:51 Diprivan IV 06/30/19 10:08 1,000 mg INF PRN Administration TO ACHIEVE GOAL RASS Protocol Sertraline HCl 50 mg 05/31/19 09:00 06/01/19 08:41 Zoloft PO 50 mg DAILY MAXINE Administration Valsartan 320 mg 05/31/19 09:00 06/01/19 08:47 Diovan PO 320 mg DAILY MAXINE Administration - Exam Eye: PERRL Heart: RRR, no murmur, no gallops, no rubs, normal peripheral pulses Respiratory: rales (+ rales at both bases, and coarse breath sounds) Gastrointestinal: soft, non-tender, non-distended, normal bowel sounds, no palpable masses, no hepatomegaly Extremities: no cyanosis, no clubbing, 1+ LE edema Hosp A/P (1) Acute respiratory failure with hypoxia and hypercapnia Code(s): J96.01 - ACUTE RESPIRATORY FAILURE WITH HYPOXIA; J96.02 - ACUTE RESPIRATORY FAILURE WITH HYPERCAPNIA Status: Acute (2) NSTEMI (non-ST elevated myocardial infarction) Code(s): I21.4 - NON-ST ELEVATION (NSTEMI) MYOCARDIAL INFARCTION Status: Acute (3) Diabetes mellitus, type II Status: Acute (4) Hypertension Code(s): I10 - ESSENTIAL (PRIMARY) HYPERTENSION Status: Acute Qualifiers: Hypertension type: essential hypertension Qualified Code(s): I10 - Essential (primary) hypertension (5) CHF exacerbation Code(s): I50.9 - HEART FAILURE, UNSPECIFIED Status: Acute (6) Tobacco abuse Code(s): Z72.0 - TOBACCO USE Status: Chronic - Plan * Acute respiratory failure with hypoxcemia and hypercapnea- requiring ventilation * Pneumonia- continue Azithromycin and Rocephin * NSTEMI- She has been evaluated by Cardiology- this is felt to be demand ischemia * Acute on chronic heart failure- ? type- last Echo in our system was 2014 and the EF was 65% at that time- Echo is pending * Continue Duonebs, and steroids * Ongoing Tobacco abuse- will need to discuss once she is more stable * HTN- blood pressure is controlled * DM- blood glucose is stable * Acute on chronic kidney disease- slightly improved
[2019-06-01] MEDS ORDERED: Potassium Chloride 20 MEQ TAB PO SCH ×2 (10:30→14:00)
--- NOTE | 2019-06-01 11:00 | PRG ---
DATE OF SERVICE: 06/01/2019 SUBJECTIVE: Ms. Hu remains on the ventilator. She is resting comfortably. Her blood pressure is 99/60, pulse 90 and it is sinus. Physical examination was not done other than visually due to the COVID crisis as attempts were being made to limit the patient contacts. PERTINENT LABORATORY DATA: Her hemoglobin is 11.3. Her creatinine is 1.45. Potassium is 3.0. Chest x-ray reveals still has increased interstitial markings probably related to congestive heart failure. ASSESSMENT: 1. Congestive heart failure, diastolic, acute on chronic. 2. Coronary artery disease, inoperable, severe. 3. Renal insufficiency. 4. Possible pneumonia, still being worked up for possible COVID infection. PLAN: 1. We will stop the amlodipine. 2. Replete potassium. 3. Reduce enoxaparin in view of renal insufficiency. 4. She is still on IV Lasix. Job ID: [id number]
--- NOTE | 2019-06-01 14:39 | EKG ---
Test Reason : AFTER CODE BLUE Blood Pressure : / mmHG Vent. Rate : 103 BPM Atrial Rate : 103 BPM P-R Int : 130 ms QRS Dur : 082 ms QT Int : 396 ms P-R-T Axes : 068 021 182 degrees QTc Int : 518 ms Sinus tachycardia Cannot rule out Inferior infarct , age undetermined Cannot rule out Anterior infarct , age undetermined T wave abnormality, consider lateral ischemia Abnormal ECG Confirmed by LIGIA SETHI ([id number]) on 06/01/2019 2:39:37 PM Referred By: DAYA Confirmed By:LIGIA SETHI
[2019-06-01] MEDS: Atorvastatin Calcium 40 MG TAB PO SCH (20:38)
[2019-06-01] MEDS: Enoxaparin Sodium 80 MG/0.8 ML SYRINGE SC SCH (20:38)
[2019-06-02] MEDS: methylPREDNISolone Sod Succ 40 MG VIAL IVP SCH ×4 (01:02→21:03)
[2019-06-02] MEDS: Propofol 1,000 MG/100 ML VIAL IV PRN ×2 (03:41→06:48)
[2019-06-02 04:04] LABS: Anion Gap 15 mmol/L (10-20); BUN (Urea Nitrogen) 30 mg/dL (9.8-20.1); Calc. Creatinine Clearance 67 mL/min (70-130); Calcium 8.4 mg/dL (7.8-10.44); Carbon Dioxide 25 mmol/L (22-29); Chloride 116 mmol/L (98-107); Estimated GFR-MDRD 39; Glucose 174 mg/dL (70-105); Potassium 3.8 mmol/L (3.5-5.1); Sodium 152 mmol/L (136-145)
[2019-06-02 04:21] LABS: #Basophils 0.1 thou/uL (0.0-0.2); #Lymphocytes 1.1 thou/uL (1.20-3.40); #Monocytes 0.8 thou/uL (0.11-0.59); #Neutrophils 10.7 thou/uL (1.40-6.50); %Basophils 0.5 % (0.0-1.0); %Eosinophils 0.1 % (0.0-10.0); %Lymphocytes 8.5 % (21.0-51.0); %Neutrophils 84.8 % (42.0-75.0); Hemoglobin 11.4 g/dL (12.0-16.0); Mean Corpuscular Hemoglobin 25.8 pg (27.0-31.0); Mean Corpuscular Volume 83.2 fL (78.0-98.0); Mean Platelet Volume 10.9 fL (7.4-10.4); Platelet Count 254 thou/uL (130-400); RBC Distribution Width 14.6 % (11.5-14.5); White Blood Cell (WBC) Count 12.6 thou/uL (4.8-10.8)
[2019-06-02] MEDS: Furosemide 40 MG/4 ML VIAL SLOW IVP SCH (05:02)
[2019-06-02] MEDS: Nitroglycerin 2% Ointment 1 INCH/1 GM Packet TOP SCH ×3 (05:02→21:05)
[2019-06-02] MEDS: HumaLOG 300 UNITS/3 ML VIAL SC PRN ×2 (05:02→13:03)
[2019-06-02 07:59] LABS: Actual Bicarbonate (HCO3a) 26.2 mEq/L (22-28); Base Excess (BEa) 1.2 mEq/L (-2.0 to +3.0); Calcium, Ionized 1.14 mmol/L (1.12-1.30); Carboxyhemoglobin (COHb) 0.1 gm% (0.0-3.0); Hemoglobin (Hb) 12.4 g/dL (12.0-16.0); O2 Tension (PaO2) 206.9 mmHg (80.0-100.0); Potassium - ABG Lab 3.67 mmol/L (3.70-5.30)
[2019-06-02 08:27] LABS: Puncture Site RB
--- NOTE | 2019-06-02 08:39 | RAD ---
CHEST 1 VIEW PORTABLE: Date: 06/02/2019 HISTORY: Respiratory insufficiency. COMPARISON: 06/01/2019. FINDINGS: NG tube and endotracheal tube in place. There is some rotation to the right. Heart size is borderline . There is bilateral vascular congestion with some diffuse hazy opacity in the left chest, possibly r epresenting some developing pleural effusion or some homogeneous alveolar opacity changes such as pne umonia. Continue short-term follow-up. IMPRESSION: 1. Worsening hazy opacity changes in the left mid and lower chest. 2. Stable appearing right chest. 3. Borderline heart size. 4. Continue short-term follow-up. POS: [facility]
[2019-06-02] MEDS: Enoxaparin Sodium 80 MG/0.8 ML SYRINGE SC SCH (08:41)
[2019-06-02] MEDS: cefTRIAXone\\ROCEPHIN 1 GM in Sodium Chloride 0.9% 100 ML IVPB SCH (08:42)
[2019-06-02] MEDS: Clopidogrel Bisulfate 75 MG TAB PO SCH (08:43)
[2019-06-02] MEDS: Pregabalin 50 MG CAP PO SCH ×3 (08:43→21:04)
[2019-06-02] MEDS: Carvedilol 25 MG TAB PO SCH ×2 (08:44→17:18)
--- NOTE | 2019-06-02 08:44 | PDOC.HOSPP ---
- Subjective Encounter Date: 06/02/19 Encounter Time: 08:43 Subjective: Ms. Hu was seen today in follow-up of respiratory failure. She is awake, a bit drowsy. The sedation is being weaned. - Objective Vital Signs & Weight: Vital Signs (12 hours) Pulse Resp BP 06/02/19 07:45 80 06/02/19 06:00 16 06/02/19 04:00 13 06/02/19 02:31 80 06/02/19 02:00 11 L 06/02/19 00:00 10 L 06/01/19 22:22 80 115/69 06/01/19 22:00 12 Weight Admit Weight 245 lb Weight 236 lb 5.369 oz Most Recent Monitor Data Heart Rate from ECG 88 NIBP 125/94 NIBP BP-Mean 104 Respiration from ECG 15 SpO2 96 I&O: 06/01/19 06/02/19 06/03/19 06:59 06:59 06:59 Intake Total 1137 1168.2 Output Total 3985 2455 Balance -2848 -1286.8 Result Diagrams: 06/02/19 03:40 06/02/19 03:39 Additional Labs: Accuchecks 06/01/19 06/01/19 06/01/19 20:49 18:17 09:30 POC Glucose 132 H 137 H 140 H Hospitalist ROS - Medication Medications: Active Medications Generic Name Dose Route Start Last Admin Trade Name Freq PRN Reason Stop Dose Admin Albuterol/Ipratropium 3 ml 05/31/19 10:30 06/02/19 08:20 Duoneb NEB 3 ml [id number] MAXINE Administration Aspirin 81 mg 05/31/19 09:00 06/01/19 08:43 Aspirin Chewable PO 81 mg DAILY MAXINE Administration Atorvastatin Calcium 80 mg 05/31/19 21:00 06/01/19 20:38 Lipitor PO 80 mg HS MAXINE Administration Carvedilol 25 mg 05/31/19 08:00 06/01/19 17:30 Coreg PO 25 mg BID-WM MAXINE Administration Clopidogrel Bisulfate 75 mg 05/31/19 09:00 06/01/19 08:42 Plavix PO 75 mg DAILY MAXINE Administration Enoxaparin Sodium 80 mg 06/01/19 21:00 06/01/19 20:38 Lovenox SC 80 mg 0900,2100 MAXINE Administration Hydralazine HCl 25 mg 05/31/19 09:00 06/01/19 20:38 Apresoline PO 25 mg TID MAXINE Administration Hydralazine HCl 10 mg 05/31/19 10:46 05/31/19 12:49 Apresoline SLOW IVP 10 mg Q4H PRN Administration SBP > 180 and HR < 70 Insulin Glargine 40 units/ 0.4 mls @ 0 mls/hr 05/31/19 21:00 06/01/19 20:45 Miscellaneous Medication SC 0.4 mls HS MAXINE Administration Insulin Glargine 40 units/ 0.4 mls @ 0 mls/hr 05/31/19 09:00 06/01/19 08:47 Miscellaneous Medication SC 0.4 mls QAM MAXINE Administration Fentanyl Citrate 2,000 mcg/ 100 mls @ 0 mls/hr 05/31/19 10:05 05/31/19 10:41 Sodium Chloride IV 06/30/19 10:05 100 mls INF MAXINE Administration Protocol Per Protocol Ceftriaxone Sodium 1 gm/ 100 mls @ 200 mls/hr 06/01/19 09:00 06/01/19 08:47 Sodium Chloride IVPB 100 mls 0900 MAXINE Administration Azithromycin 500 mg/ Sodium 250 mls @ 250 mls/hr 06/01/19 09:00 06/01/19 08: 45 Chloride IVPB 250 mls 0900 MAXINE Administration Potassium Chloride 40 meq/ 270 mls @ 135 mls/hr 06/01/19 04:59 06/01/19 05:28 Sodium Chloride IVPB 270 mls ASDIR PRN Administration FOR SERUM K+ 2.5 - 3.5 Insulin Human Lispro 0 units 05/31/19 07:28 06/02/19 05:02 Humalog SC 2 unit .MODERATE SLIDING SC PRN Administration Moderate Correctional Scale Methylprednisolone Sodium Succinate 40 mg 05/31/19 08:00 06/02/19 01:02 Solu-Medrol IVP 40 mg 0200,0800,1400,2000 MAXINE Administration Nitroglycerin 1 inch 05/31/19 22:00 06/02/19 05:02 Nitro-Bid 2% Ointment TOP 1 inch Q8HR MAXINE Administration Pantoprazole Sodium 40 mg 05/31/19 09:00 06/01/19 08:41 Protonix PO 40 mg DAILY MAXINE Administration Pregabalin 100 mg 05/31/19 09:00 06/01/19 20:39 Lyrica PO 100 mg TID MAXINE Administration Propofol 1,000 mg 05/31/19 10:08 06/02/19 06:48 Diprivan IV 06/30/19 10:08 1,000 mg INF PRN Administration TO ACHIEVE GOAL RASS Protocol Sertraline HCl 50 mg 05/31/19 09:00 06/01/19 08:41 Zoloft PO 50 mg DAILY MAXINE Administration Valsartan 320 mg 05/31/19 09:00 06/01/19 08:47 Diovan PO 320 mg DAILY MAXINE Administration - Exam Eye: PERRL Heart: RRR, no murmur, no gallops, no rubs, normal peripheral pulses Respiratory: CTAB (with coarse breath sounds at both bases) Hosp A/P (1) Acute respiratory failure with hypoxia and hypercapnia Code(s): J96.01 - ACUTE RESPIRATORY FAILURE WITH HYPOXIA; J96.02 - ACUTE RESPIRATORY FAILURE WITH HYPERCAPNIA Status: Acute (2) NSTEMI (non-ST elevated myocardial infarction) Code(s): I21.4 - NON-ST ELEVATION (NSTEMI) MYOCARDIAL INFARCTION Status: Acute (3) Diabetes mellitus, type II Status: Acute (4) Hypertension Code(s): I10 - ESSENTIAL (PRIMARY) HYPERTENSION Status: Acute Qualifiers: Hypertension type: essential hypertension Qualified Code(s): I10 - Essential (primary) hypertension (5) CHF exacerbation Code(s): I50.9 - HEART FAILURE, UNSPECIFIED Status: Acute (6) Tobacco abuse Code(s): Z72.0 - TOBACCO USE Status: Chronic (7) Alieo-ge-wdsqjsh kidney injury Code(s): N17.9 - ACUTE KIDNEY FAILURE, UNSPECIFIED; N18.9 - CHRONIC KIDNEY DISEASE, UNSPECIFIED Status: Acute (8) Morbid obesity with BMI of 40.0-44.9, adult Code(s): E66.01 - MORBID (SEVERE) OBESITY DUE TO EXCESS CALORIES; Z68.41 - BODY MASS INDEX (BMI) 40.0-44.9, ADULT Status: Chronic (9) Obesity hypoventilation syndrome Code(s): E66.2 - MORBID (SEVERE) OBESITY WITH ALVEOLAR HYPOVENTILATION Status : Chronic - Plan * Acute respiratory failure with hypoxcemia and hypercapnea- requiring ventilation * COVID screen was negative * Hopefully she can be weaned from the ventilator * Pneumonia- continue Azithromycin and Rocephin * Obesity Hypoventilation syndrome- Bipap prn once extubated * Hypernatremia- increase the amount of free water through the NG tube- continue to monitor * NSTEMI-due to demand ischemia from pneumonia * Acute on chronic heart failure- ? type- last Echo in our system was 2014 and the EF was 65% at that time- Echo is pending * Continue Duonebs, and steroids * Ongoing Tobacco abuse- will need to discuss once she is more stable * HTN- blood pressure is controlled * DM- blood glucose is stable * Acute on chronic kidney disease- slightly improved
[2019-06-02] MEDS: hydrALAZINE 25 MG TAB PO SCH ×4 (08:45→21:03)
[2019-06-02] MEDS: Aspirin Chewable 81 MG TAB PO SCH (08:45)
[2019-06-02] MEDS: Azithromycin 500 MG in Sodium Chloride 0.9% 250 ML 250 ML IVPB SCH (08:47)
[2019-06-02] MEDS: Insulin Glargine 40 UNITS in Pre-Filled Syringe 1 EACH SC SCH ×2 (08:47→21:04)
[2019-06-02] MEDS: Valsartan 80 MG TAB PO SCH (08:55)
[2019-06-02] MEDS ORDERED: Furosemide 40 MG/4 ML VIAL SLOW IVP SCH (09:00)
--- NOTE | 2019-06-02 09:06 | PRG ---
DATE OF SERVICE: 06/02/2019 SUBJECTIVE: Kayla Hu, morbid obese female. This morning, sedation was withheld. She is more awake, responsive. Denies any pain. OBJECTIVE: VITAL SIGNS: Saturations are 98%, pulse 80, blood pressure 143\76, respiratory rate 18. She is afebrile. Serology for coronavirus negative. CHEST: Decreased breath sounds. No wheezing. No crackles. CARDIAC: Normal S1 and S2. No gallops. ABDOMEN: No masses. LABORATORY DATA ABG much improved po2 87 pco2 47 ph 7.53 Lytes are normal. Creatinine 1.6, BUN is 30, sodium 152, which may be slightly dry. White count 12,000. X-ray shows nonspecific haziness in the left lung. IMPRESSION: 1. Morbid obesity, respiratory failure, pneumonia. 2. Wood negative. 3. Sleep apnea. 4. Congestive heart failure. PLAN: We will hold sedation. We will hopefully try and wean and extubate. Otherwise, continue broad-spectrum antibiotics, nebs, steroids. We will follow. One half hour critical care time. Job ID: [id number] [facility]
[2019-06-02] MEDS ORDERED: DC Sedation Protocol FS ONE (09:14)
--- NOTE | 2019-06-02 09:38 | PRG ---
DATE OF SERVICE: 06/02/2019 SUBJECTIVE: Ms. Hu is extubated. She is awake and alert. OBJECTIVE: VITAL SIGNS: Blood pressure 170/96 and pulse 90. LUNGS: Clear. CARDIAC: Normal S1, normal S2. ABDOMEN: Soft and nontender. EXTREMITIES: No edema. ASSESSMENT: 1. Congestive heart failure, diastolic, acute, improved. 2. Diabetes. 3. Hypernatremia with sodium level of 152. 4. Creatinine is high at 1.67. PLAN: 1. Lasix has been stopped. 2. Increase hydralazine. 3. We will need some free water either intravenously or orally. 4. Resume amlodipine, start at 5 mg a day. Job ID: [id number]
--- NOTE | 2019-06-02 12:36 | PQF ---
DAVIDE MICHEL TONI MD [id number] CLINICAL DOCUMENTATION IMPROVEMENT CLARIFICATION FORM: ICD-10 Updated PLEASE DO AN ADDENDUM TO THE PROGRESS NOTE WITH ANY DOCUMENTATION UPDATES OR ADDITIONS AND CARRY THROUGH TO DC SUMMARY. THANK YOU. DATE: 06/02/19 , 06/06/19 ATTN: DR. ERAZO, DR. Hector PEREZ Please exercise your independent, professional judgment in responding to the clarification form. Clinical indicators are provided on the bottom of this form for your review. Please check appropriate box(s): [x ] Empirically treating Gram Negative Pneumonia [ ] Empirically treating Anaerobic Pneumonia [ ] Simple Pneumonia [ ] Pneumonia of unknown etiology [ ] Unable to determine In addition, please specify: Present on Admission (POA): [ x] Yes [ ] No [ ] Unable to determine For continuity of documentation, please document condition throughout progress notes and discharge summary. Thank You. CLINICAL INDICATORS - SIGNS / SYMPTOMS / LABS / RESULTS AND LOCATION IN MR 05/30 WBC 11.9 > 12.6 > 12.6 05/31 CXR IMPRESSION : PATCHY INTERSTITIAL OPACITIES WITH MORE FOCAL ALVEOLAR INFILTRATE IN THE RIGHT LOWER LOBE, CORRELATE FOR EDEMA VERSUS PNEUMONIA. 05/31, 06/01 PN (DAYA) PLAN: PNEUMONIA- CONTINUE AZITHROMYCIN AND ROCEPHIN 06/01 PN (MESA) MESA: IMPRESSION - PNEUMONIA 06/02 PN (MESA ) ASSESSMENT: COPD DISEASE EXACERBATION, BRONCHITIS, SUPERIMPOSED PNEUMONIA. 06/02 - 06/04 PN (LADHA) IMPRESSION: PNEUMONIA, SUSPECTED GRAM- NEGATIVE RISK: DX ACUTE HYPOXIC/HYPERCAPNIC RESPIRATORY FAILURE, CHF EXACERBATION, HX ASTHMA ( PN/DAYA) 06/01 TREATMENTS: ROCEPHIN IV (05/31 - PRESENT) ZITHROMAX IV (05/31 - PRESENT) THANK YOU! [employer] WELL[employer] Assisted Sales Representative [employer] Winform Viewer(This form is maintained as a part of the permanent medical record) 2014 [employer] All Rights Reserved ALLY [email or web address]
[2019-06-02] MEDS: Dextrose 5% in Water 1,000 ML IV SCH (13:02)
[2019-06-02] MEDS: Amlodipine 5 MG TAB PO SCH (13:21)
[2019-06-02] MEDS: Atorvastatin Calcium 40 MG TAB PO SCH (21:04)
[2019-06-03] MEDS: methylPREDNISolone Sod Succ 40 MG VIAL IVP SCH ×2 (02:08→08:07)
[2019-06-03 03:57] LABS: Anion Gap 14 mmol/L (10-20); BUN (Urea Nitrogen) 30 mg/dL (9.8-20.1); Calc. Creatinine Clearance 75 mL/min (70-130); Calcium 8.3 mg/dL (7.8-10.44); Carbon Dioxide 25 mmol/L (22-29); Chloride 113 mmol/L (98-107); Estimated GFR-MDRD 45; Glucose 119 mg/dL (70-105); Potassium 3.6 mmol/L (3.5-5.1); Sodium 148 mmol/L (136-145)
[2019-06-03 04:05] LABS: Band 1 % (5-11); Hemoglobin 11.4 g/dL (12.0-16.0); Lymphocytes 13 % (21-51); MDiff Complete? YES; Mean Corpuscular HGB CONC 31.3 g/dL (32.0-36.0); Mean Corpuscular Hemoglobin 26.2 pg (27.0-31.0); Mean Corpuscular Volume 83.5 fL (78.0-98.0); Mean Platelet Volume 10.3 fL (7.4-10.4); Monocytes 8 % (0-10); Neutrophil 78 % (42-75); Platelet Count 274 thou/uL (130-400); Platelet Morphology Comment Appears Adequate; RBC Distribution Width 14.5 % (11.5-14.5); RBC Morphology Normal; Red Blood Cell (RBC) Count 4.36 mill/uL (4.20-5.40); White Blood Cell (WBC) Count 12.4 thou/uL (4.8-10.8)
[2019-06-03] MEDS: Dextrose 5% in Water 1,000 ML IV SCH (04:55)
[2019-06-03] MEDS: Nitroglycerin 2% Ointment 1 INCH/1 GM Packet TOP SCH ×3 (05:01→22:28)
[2019-06-03] MEDS: Carvedilol 25 MG TAB PO SCH ×2 (08:07→17:08)
[2019-06-03] MEDS: hydrALAZINE 25 MG TAB PO SCH ×3 (08:47→22:30)
[2019-06-03] MEDS: Aspirin Chewable 81 MG TAB PO SCH (08:47)
[2019-06-03] MEDS: Amlodipine 5 MG TAB PO SCH (08:48)
[2019-06-03] MEDS: Clopidogrel Bisulfate 75 MG TAB PO SCH (08:48)
[2019-06-03] MEDS: Enoxaparin Sodium 40 MG/0.4 ML SYRINGE SC SCH ×2 (08:48→22:34)
[2019-06-03] MEDS: Valsartan 80 MG TAB PO SCH (08:52)
[2019-06-03] MEDS: Pregabalin 50 MG CAP PO SCH ×3 (08:52→22:29)
--- NOTE | 2019-06-03 08:55 | RAD ---
PORTABLE CHEST: DATE: 06/03/2019. PROVIDED CLINICAL HISTORY: Dyspnea. FINDINGS: Comparison 06/02/2019. Interval extubation and removal of enteric catheter. Additional significant i nterval change with respect to the prior examination is not apparent. IMPRESSION: As above. POS: RASHARD
[2019-06-03] MEDS: Doxycycline 100 MG CAP PO SCH ×2 (08:59→22:28)
[2019-06-03] MEDS: Insulin Glargine 40 UNITS in Pre-Filled Syringe 1 EACH SC SCH ×2 (09:00→22:32)
--- NOTE | 2019-06-03 09:08 | PRG ---
DATE OF SERVICE: 06/03/2019 SUBJECTIVE: Kayla Hu is a morbidly obese female, was extubated yesterday. She is doing better. X-ray shows a questionable left-sided infiltrate, but much improved. OBJECTIVE: VITAL SIGNS: Pulse 90, blood pressure 130/80, respiratory rate 18, sats 90%, afebrile. All cultures are negative. Serology negative. CHEST: No wheezing, crackles. CARDIAC: Normal S1, S2. ABDOMEN: No masses. Creatinine 1.47. ASSESSMENT: 1. Morbid obesity, chronic obstructive pulmonary disease exacerbation, bronchitis, superimposed pneumonia. 2. Hypertension. 3. Coronary artery disease. 4. Sleep apnea. 5. Coronavirus virus serology negative. Switch over to oral antibiotic, steroids. She can be transferred out of the ICU. PT, supportive care. We will follow. Job ID: [id number]
--- NOTE | 2019-06-03 09:16 | PRG ---
DATE OF SERVICE: 06/03/2019 SUBJECTIVE: Ms. Hu is feeling better. She is sitting up in a chair. She is not short of breath. OBJECTIVE: VITAL SIGNS: Blood pressure earlier was 130/99, now 168/91, pulse 83 and sinus. LUNGS: Clear. CARDIAC: Normal S1, normal S2. ABDOMEN: Soft, nontender. EXTREMITIES: No edema. ASSESSMENT: 1. Status post non-ST elevation myocardial infarction. 2. Renal failure is actually improving. Creatinine is now 1.47. 3. Hypertension. 4. Previous history of diastolic congestive heart failure. PLAN: 1. Increase amlodipine back to 10 mg a day, which was her home dose. 2. We will order echocardiogram. 3. Okay to be moved to the telemetry unit out of the intensive care unit. Job ID: [id number]
[2019-06-03] MEDS: HumaLOG 300 UNITS/3 ML VIAL SC PRN ×2 (12:02→17:09)
[2019-06-03] MEDS ORDERED: cloNIDine 0.1 MG TAB PO PRN (14:25)
[2019-06-03] MEDS ORDERED: DC Electrolyte Protocol FS ONE (14:25)
[2019-06-03] MEDS ORDERED: hydrALAZINE 20 MG/ML VIAL SLOW IVP PRN (14:25)
--- NOTE | 2019-06-03 14:55 | PRG ---
DATE OF SERVICE: 06/03/2019 SUBJECTIVE: A 53-year-old female with inoperable coronary artery disease, chronic diastolic heart failure, hypertension, hyperlipidemia, morbid obesity, and diabetes mellitus type 2, presented to the hospital on May 31, 2019, with shortness of breath. She was admitted with a diagnosis of congestive heart failure exacerbation along with non ST elevation RI. Later on, a code was called and she was subsequently intubated. She is currently on the telemetry floor. She denies any chest pain, shortness of breath, or palpitations at this time. Coronavirus testing was negative. REVIEW OF SYSTEMS: As discussed above. No nausea, vomiting, or new focal deficit. PHYSICAL EXAMINATION: VITAL SIGNS: Temperature 97.7, pulse rate of 83, respirations of 18, blood pressure of 127/68, O2 saturation 96% on 2 L nasal cannula, respiration of 18. Intake of 2991, output 2191. Weight is 227 pounds from 245 pounds on admission. GENERAL: A 53-year-old female, in no apparent distress. LUNGS: A few rales with rhonchi at bases. HEART: S1, S2 present. Regular. ABDOMEN: Soft, obese, bowel sounds present. EXTREMITIES: No calf tenderness. MEDICATIONS: Current medications were reviewed. The patient is on; 1. Lantus 40 units b.i.d. with nebulizer treatment. 2. Nitroglycerin patch. 3. Amlodipine. 4. Aspirin. 5. Lipitor. 6. IV fluids. 7. Carvedilol. 8. Plavix. 9. Doxycycline. 10. Lovenox. 11. Hydralazine. 12. Protonix. 13. Zoloft. 14. Diovan. LABORATORY DATA: Troponin 3.2. Creatinine today was 1.47. Sodium today was 148. WBC 12.4 with hemoglobin 11.4 and platelet of 274. IMAGING STUDIES: Telemetry monitoring by my review showed sinus rhythm. Chest x-ray by my review was negative for infiltrate. IMPRESSION: 1. Acute hypoxic respiratory failure. 2. Acute on chronic diastolic heart failure exacerbation. 3. Non-ST elevation myocardial infarction. 4. Chronic obstructive pulmonary disease exacerbation. 5. Pneumonia, suspected gram-negative. 6. Morbid obesity with a BMI of 40.3. 7. Diabetes mellitus type 2. 8. Inoperable coronary artery disease. 9. Obstructive sleep apnea. 10. History of cerebrovascular accident. 11. Anxiety. 12. Hypernatremia. 13. Chronic kidney disease stage 3. PLAN: IV fluids will be discontinued. We will continue aspirin with Lovenox and nitroglycerin patch. Amlodipine dose was increased to 10 mg. We will continue carvedilol, Plavix, and doxycycline. We will add fluid restriction. Recheck labs in a.m. Echocardiogram has been ordered per Cardiology. We will discontinue electrolyte replacement protocol. Increase ambulation. The patient understands the above plan of care. Job ID: [id number]
[2019-06-03] MEDS: Atorvastatin Calcium 40 MG TAB PO SCH (22:28)
[2019-06-03] MEDS ORDERED: Sodium Chloride 0.9% 10 ML ONE (22:41)
[2019-06-04] MEDS: Nitroglycerin 2% Ointment 1 INCH/1 GM Packet TOP SCH ×3 (06:03→22:42)
[2019-06-04] MEDS: Carvedilol 25 MG TAB PO SCH ×2 (08:27→16:32)
[2019-06-04] MEDS: Aspirin Chewable 81 MG TAB PO SCH (08:30)
[2019-06-04] MEDS: Amlodipine 10 MG TAB PO SCH (08:30)
[2019-06-04] MEDS: Clopidogrel Bisulfate 75 MG TAB PO SCH (08:30)
[2019-06-04] MEDS: Doxycycline 100 MG CAP PO SCH ×2 (08:30→22:39)
[2019-06-04] MEDS: Pregabalin 50 MG CAP PO SCH ×3 (08:31→22:40)
[2019-06-04] MEDS: Enoxaparin Sodium 40 MG/0.4 ML SYRINGE SC SCH ×2 (08:31→22:39)
[2019-06-04] MEDS: hydrALAZINE 25 MG TAB PO SCH ×3 (08:31→22:39)
[2019-06-04] MEDS: Valsartan 80 MG TAB PO SCH (08:32)
[2019-06-04] MEDS: Insulin Glargine 40 UNITS in Pre-Filled Syringe 1 EACH SC SCH (08:37)
[2019-06-04] MEDS ORDERED: Loratadine 10 MG TAB PO PRN (09:05)
[2019-06-04 12:32] LABS: #Eosinphils 0.3 thou/uL (0.0-0.7); #Lymphocytes 3.3 thou/uL (1.20-3.40); #Monocytes 0.8 thou/uL (0.11-0.59); #Neutrophils 5.6 thou/uL (1.40-6.50); %Basophils 0.2 % (0.0-1.0); %Lymphocytes 33.2 % (21.0-51.0); %Monocytes 7.9 % (0.0-10.0); %Neutrophils 55.6 % (42.0-75.0); Hemoglobin 12.2 g/dL (12.0-16.0); Mean Corpuscular HGB CONC 30.3 g/dL (32.0-36.0); Mean Corpuscular Hemoglobin 25.6 pg (27.0-31.0); Mean Corpuscular Volume 84.3 fL (78.0-98.0); Mean Platelet Volume 10.6 fL (7.4-10.4); Platelet Count 279 thou/uL (130-400); RBC Distribution Width 14.2 % (11.5-14.5); Red Blood Cell (RBC) Count 4.78 mill/uL (4.20-5.40)
[2019-06-04 12:51] LABS: ALT (SGPT) 19 U/L (8-55); AST (SGOT) 19 U/L (5-34); Albumin 2.9 g/dL (3.5-5.0); Alkaline Phosphatase 111 U/L (40-110); Anion Gap 17 mmol/L (10-20); BUN (Urea Nitrogen) 33 mg/dL (9.8-20.1); Bilirubin, Total 0.2 mg/dL (0.2-1.2); Calc. Creatinine Clearance 76 mL/min (70-130); Calcium 8.3 mg/dL (7.8-10.44); Carbon Dioxide 22 mmol/L (22-29); Chloride 106 mmol/L (98-107); Estimated GFR-MDRD 44; Globulin 3.2 g/dL (2.4-3.5); Glucose 116 mg/dL (70-105); Magnesium 2.2 mg/dL (1.6-2.6); Potassium 3.5 mmol/L (3.5-5.1); Protein, Total 6.1 g/dL (6.0-8.3); Sodium 141 mmol/L (136-145)
--- NOTE | 2019-06-04 13:27 | PDOC.HOSPP ---
- Subjective Encounter Date: 06/04/19 Encounter Time: 13:00 Subjective: Patient seen and examined for NSTEMI. No CP/SOB. No new complaints. No overnight events - Objective Vital Signs & Weight: Vital Signs (12 hours) Temp Pulse Pulse Pulse Resp BP BP 06/04/19 11:39 97.4 F L 76 16 06/04/19 11:07 79 79 126/67 118/59 L 06/04/19 10:29 76 16 06/04/19 07:14 98.4 F 77 16 06/04/19 06:36 80 12 06/04/19 04:30 97.7 F 80 20 06/04/19 02:41 77 16 BP BP Pulse Ox 06/04/19 11:39 134/72 97 06/04/19 11:07 06/04/19 10:29 06/04/19 07:14 142/76 H 100 06/04/19 06:36 06/04/19 04:30 135/74 98 06/04/19 02:41 97 Weight Admit Weight 245 lb 9.6 oz Weight 241 lb 12.8 oz Most Recent Monitor Data Heart Rate from ECG 89 NIBP 130/85 NIBP BP-Mean 100 Respiration from ECG 16 SpO2 100 I&O: 06/03/19 06/04/19 06/05/19 06:59 06:59 06:59 Intake Total 2991 1460 Output Total 2191 705 Balance 800 755 Result Diagrams: 06/04/19 05:25 06/04/19 11:49 Additional Labs: Accuchecks 06/04/19 06/03/19 06/03/19 05:39 20:27 16:28 POC Glucose 83 200 H 268 H EKG Reviewed by me: Yes (Tele SR) Hospitalist ROS - Review of Systems Cardiovascular: denies: chest pain, palpitations, orthopnea, paroxysmal noc. dyspnea, edema, light headedness, other Gastrointestinal: denies: nausea, vomiting, abdominal pain, diarrhea, constipation, melena, hematochezia, other - Medication Medications: Active Medications Generic Name Dose Route Start Last Admin Trade Name Freq PRN Reason Stop Dose Admin Albuterol/Ipratropium 3 ml 05/31/19 10:30 06/04/19 10:29 Duoneb NEB 3 ml [id number] MAXINE Administration Amlodipine Besylate 10 mg 06/04/19 09:00 06/04/19 08:30 Norvasc PO 10 mg DAILY MAX[facility] Administration Aspirin 81 mg 05/31/19 09:00 06/04/19 08:30 Aspirin Chewable PO 81 mg DAILY [facility] Administration Atorvastatin Calcium 80 mg 05/31/19 21:00 06/03/19 22:28 Lipitor PO 80 mg HS MAXINE Administration Carvedilol 25 mg 05/31/19 08:00 06/04/19 08:27 Coreg PO 25 mg BID-WM MAXINE Administration Clopidogrel Bisulfate 75 mg 05/31/19 09:00 06/04/19 08:30 Plavix PO 75 mg DAILY [facility] Administration Doxycycline Hyclate 100 mg 06/03/19 09:00 06/04/19 08:30 Vibramycin PO 06/10/19 09:01 100 mg BID [facility] Administration Enoxaparin Sodium 40 mg 06/03/19 09:00 06/04/19 08:31 Lovenox SC 40 mg BID MAXINE Administration Hydralazine HCl 50 mg 06/02/19 09:00 06/04/19 08:31 Apresoline PO 50 mg TID [facility] Administration Insulin Glargine 40 units/ 0.4 mls @ 0 mls/hr 05/31/19 09:00 06/04/19 08:37 Miscellaneous Medication SC 0.4 mls QAM [facility] Administration Insulin Human Lispro 0 units 05/31/19 07:28 06/03/19 17:09 Humalog SC 6 unit .MODERATE SLIDING SC PRN Administration Moderate Correctional Scale Loratadine 10 mg 06/04/19 09:05 06/04/19 09:53 Claritin PO 10 mg DAILYPRN PRN Administration Sinus Symptoms Nitroglycerin 1 inch 05/31/19 22:00 06/04/19 06:03 Nitro-Bid 2% Ointment TOP 1 inch Q8HR MAXINE Administration Pantoprazole Sodium 40 mg 05/31/19 09:00 06/04/19 08:31 Protonix PO 40 mg DAILY [facility] Administration Pregabalin 100 mg 05/31/19 09:00 06/04/19 08:31 Lyrica PO 100 mg TID [facility] Administration Sertraline HCl 50 mg 05/31/19 09:00 06/04/19 08:32 Zoloft PO 50 mg DAILY [facility] Administration Valsartan 320 mg 05/31/19 09:00 06/04/19 08:32 Diovan PO 320 mg DAILY [facility] Administration - Exam General Appearance: NAD Heart: RRR, no gallops Respiratory: no wheezes, no ronchi Gastrointestinal: non-tender, normal bowel sounds Extremities: no cyanosis Neurological: no new deficit Hosp A/P - Plan DVT proph w/SCDs 1. Acute on chronic hypoxic respiratory failure. 2. Acute on chronic diastolic heart failure exacerbation. 3. Non-ST elevation myocardial infarction 4. Chronic obstructive pulmonary disease exacerbation. 5. Pneumonia, suspected gram-negative. 6. Morbid obesity with a BMI of 40.3. 7. Diabetes mellitus type 2. 8. Inoperable CAD. 9. Obstructive sleep apnea. 10. History of cerebrovascular accident. 11. Anxiety. 12. Hypernatremia. 13. Chronic kidney disease stage 3. PLAN: Reduce HS Lantus to 30 units Cont ASA/Plavix On Lovenox Cont Doxycycline Resume home CPAP AM labs Cont PT/OT HHC setup DC in 24-48 hr if stable.
--- NOTE | 2019-06-04 14:05 | PRG ---
DATE OF SERVICE: 06/04/2019 SUBJECTIVE: This patient remains on [facility]. She is doing well and has no acute complaints. OBJECTIVE: VITAL SIGNS: Temperature 97.4, pulse 76, respirations 16, O2 saturation 97% on room air, blood pressure 134/72. HEENT: Unremarkable. NECK: No adenopathy or JVD. LUNGS: Clear but distant. CARDIAC: S1, S2. Regular. ABDOMEN: Soft. EXTREMITIES: No edema. LABORATORY DATA: White blood cell count 10, hematocrit 40, and platelet count 279. Sodium 141, potassium 3.5, chloride 106, CO2 of 22, BUN 33, creatinine 1.4, glucose 116. ASSESSMENT: 1. Chronic obstructive pulmonary disease with exacerbation. 2. Pneumonia. 3. Morbid obesity. 4. Hypertension. 5. Coronary artery disease. 6. Obstructive sleep apnea. PLAN: 1. Increase activity as tolerated. 2. Continue oral doxycycline. 3. Hopefully home soon. Job ID: [id number]
[2019-06-04] MEDS: Senokot S 8.6-50 MG TAB PO SCH (22:38)
[2019-06-04] MEDS: Atorvastatin Calcium 40 MG TAB PO SCH (22:39)
[2019-06-04] MEDS: Insulin Glargine 30 UNITS in Pre-Filled Syringe 1 EACH SC SCH (22:40)
[2019-06-05 04:55] LABS: #Eosinphils 0.4 thou/uL (0.0-0.7); #Lymphocytes 3.2 thou/uL (1.20-3.40); #Monocytes 0.7 thou/uL (0.11-0.59); #Neutrophils 4.8 thou/uL (1.40-6.50); %Basophils 0.2 % (0.0-1.0); %Eosinophils 4.2 % (0.0-10.0); %Lymphocytes 35.3 % (21.0-51.0); %Monocytes 8.1 % (0.0-10.0); %Neutrophils 52.3 % (42.0-75.0); Hemoglobin 11.1 g/dL (12.0-16.0); Mean Corpuscular HGB CONC 31.4 g/dL (32.0-36.0); Mean Corpuscular Volume 82.7 fL (78.0-98.0); Mean Platelet Volume 10.2 fL (7.4-10.4); Platelet Count 255 thou/uL (130-400); RBC Distribution Width 14.2 % (11.5-14.5); Red Blood Cell (RBC) Count 4.28 mill/uL (4.20-5.40); White Blood Cell (WBC) Count 9.2 thou/uL (4.8-10.8)
[2019-06-05 05:26] LABS: ALT (SGPT) 17 U/L (8-55); AST (SGOT) 14 U/L (5-34); Albumin 2.5 g/dL (3.5-5.0); Alkaline Phosphatase 91 U/L (40-110); Anion Gap 12 mmol/L (10-20); BUN (Urea Nitrogen) 35 mg/dL (9.8-20.1); Bilirubin, Total Less than 0.2 mg/dL (0.2-1.2); Calc. Creatinine Clearance 73 mL/min (70-130); Calcium 7.9 mg/dL (7.8-10.44); Carbon Dioxide 27 mmol/L (22-29); Chloride 107 mmol/L (98-107); Estimated GFR-MDRD 43; Globulin 2.7 g/dL (2.4-3.5); Glucose 152 mg/dL (70-105); Magnesium 2.2 mg/dL (1.6-2.6); Potassium 3.1 mmol/L (3.5-5.1); Protein, Total 5.2 g/dL (6.0-8.3); Sodium 143 mmol/L (136-145)
[2019-06-05] MEDS: Nitroglycerin 2% Ointment 1 INCH/1 GM Packet TOP SCH ×3 (05:56→21:14)
[2019-06-05] MEDS: Amlodipine 10 MG TAB PO SCH (09:16)
[2019-06-05] MEDS: Carvedilol 25 MG TAB PO SCH ×2 (09:16→16:33)
[2019-06-05] MEDS: Aspirin Chewable 81 MG TAB PO SCH (09:16)
[2019-06-05] MEDS: Doxycycline 100 MG CAP PO SCH ×2 (09:17→20:48)
[2019-06-05] MEDS: Clopidogrel Bisulfate 75 MG TAB PO SCH (09:17)
[2019-06-05] MEDS: hydrALAZINE 25 MG TAB PO SCH ×3 (09:17→20:46)
[2019-06-05] MEDS: Enoxaparin Sodium 40 MG/0.4 ML SYRINGE SC SCH ×2 (09:17→20:48)
[2019-06-05] MEDS: Senokot S 8.6-50 MG TAB PO SCH ×2 (09:18→20:47)
[2019-06-05] MEDS: Pregabalin 50 MG CAP PO SCH ×3 (09:18→20:46)
[2019-06-05] MEDS: Valsartan 80 MG TAB PO SCH (09:19)
[2019-06-05] MEDS: Insulin Glargine 40 UNITS in Pre-Filled Syringe 1 EACH SC SCH (09:22)
[2019-06-05] MEDS ORDERED: Potassium Chloride 20 MEQ TAB PO SCH (10:30)
--- NOTE | 2019-06-05 12:20 | PRG ---
DATE OF SERVICE: 06/05/2019 SUBJECTIVE: The patient says she is going home today. She feels fine, has no complaints. OBJECTIVE: VITAL SIGNS: On exam; temperature 97.5, pulse 83, respirations 16, O2 saturation 97% on room air, and blood pressure 134/76. HEENT: Unremarkable. NECK: No JVD. LUNGS: Clear. CARDIAC: S1 and S2. Regular. ABDOMEN: Soft. EXTREMITIES: No edema. LABORATORY DATA: White blood cell count 9.2, hematocrit 35.4, and platelet count 255. Sodium 143, potassium 3.1, BUN 35, creatinine 1.5, and glucose 152. ASSESSMENT: 1. Chronic obstructive pulmonary disease with exacerbation. 2. Pneumonia. 3. Obesity. 4. Obstructive sleep apnea. PLAN: I agree she looks suitable for discharge. She should follow up with her primary care provider in 3 to 4 weeks after discharge and finish up the doxycycline. She would need 7 to 10 days total antibiotic therapy. Job ID: [id number]
--- NOTE | 2019-06-05 14:39 | PDOC.HOSPP ---
- Subjective Encounter Date: 06/05/19 Encounter Time: 13:30 Subjective: Patient seen and examined for NSTEMI/Resp failaure. No CP/SOB. No new complaints. No overnight events - Objective Vital Signs & Weight: Vital Signs (12 hours) Temp Pulse Resp BP BP Pulse Ox 06/05/19 13:22 80 12 06/05/19 11:07 97.5 F L 83 16 134/76 97 06/05/19 10:30 72 12 06/05/19 07:07 98.0 F 82 18 132/69 98 06/05/19 06:50 76 12 06/05/19 02:52 98.6 F 79 17 123/57 L 92 L Weight Admit Weight 245 lb 9.6 oz Weight 549 lb 14.4 oz Most Recent Monitor Data Heart Rate from ECG 89 NIBP 130/85 NIBP BP-Mean 100 Respiration from ECG 16 SpO2 100 I&O: 06/04/19 06/05/19 06/06/19 06:59 06:59 06:59 Intake Total 1460 1450 Output Total 705 1150 Balance 755 300 Result Diagrams: 06/05/19 04:25 06/05/19 04:25 Additional Labs: Accuchecks 06/05/19 06/04/19 06/04/19 05:25 20:25 17:07 POC Glucose 178 H 189 H 97 06/04/19 11:35 POC Glucose 140 H EKG Reviewed by me: Yes (Tele SR) Hospitalist ROS - Review of Systems Cardiovascular: denies: chest pain, palpitations, orthopnea, paroxysmal noc. dyspnea, edema, light headedness, other Gastrointestinal: denies: nausea, vomiting, abdominal pain, diarrhea, constipation, melena, hematochezia, other - Medication Medications: Active Medications Generic Name Dose Route Start Last Admin Trade Name Freq PRN Reason Stop Dose Admin Albuterol/Ipratropium 3 ml 05/31/19 10:30 06/05/19 13:22 Duoneb NEB 3 ml [id number] MAXINE Administration Amlodipine Besylate 10 mg 06/04/19 09:00 06/05/19 09:16 Norvasc PO 10 mg DAILY [facility] Administration Aspirin 81 mg 05/31/19 09:00 06/05/19 09:16 Aspirin Chewable PO 81 mg DAILY [facility] Administration Atorvastatin Calcium 80 mg 05/31/19 21:00 06/04/19 22:39 Lipitor PO 80 mg HS [facility] Administration Carvedilol 25 mg 05/31/19 08:00 06/05/19 09:16 Coreg PO 25 mg BID-WM [facility] Administration Clopidogrel Bisulfate 75 mg 05/31/19 09:00 06/05/19 09:17 Plavix PO 75 mg DAILY [facility] Administration Doxycycline Hyclate 100 mg 06/03/19 09:00 06/05/19 09:17 Vibramycin PO 06/10/19 09:01 100 mg BID [facility] Administration Enoxaparin Sodium 40 mg 06/03/19 09:00 06/05/19 09:17 Lovenox SC 40 mg BID [facility] Administration Hydralazine HCl 50 mg 06/02/19 09:00 06/05/19 09:17 Apresoline PO 50 mg TID [facility] Administration Insulin Glargine 40 units/ 0.4 mls @ 0 mls/hr 05/31/19 09:00 06/05/19 09:22 Miscellaneous Medication SC 0.4 mls QAM [facility] Administration Insulin Glargine 30 units/ 0.3 mls @ 0 mls/hr 06/04/19 21:00 06/04/19 22:40 Miscellaneous Medication SC 0.3 mls HS [facility] Administration Insulin Human Lispro 0 units 05/31/19 07:28 06/03/19 17:09 Humalog SC 6 unit .MODERATE SLIDING SC PRN Administration Moderate Correctional Scale Loratadine 10 mg 06/04/19 09:05 06/04/19 09:53 Claritin PO 10 mg DAILYPRN PRN Administration Sinus Symptoms Nitroglycerin 1 inch 05/31/19 22:00 06/05/19 05:56 Nitro-Bid 2% Ointment TOP Not Given Q8HR [facility] Pantoprazole Sodium 40 mg 05/31/19 09:00 06/05/19 09:18 Protonix PO 40 mg DAILY [facility] Administration Pregabalin 100 mg 05/31/19 09:00 06/05/19 09:18 Lyrica PO 100 mg TID [facility] Administration Senna/Docusate Sodium 2 tab 06/04/19 21:00 06/05/19 09:18 Senokot S PO 2 tab BID [facility] Administration Sertraline HCl 50 mg 05/31/19 09:00 06/05/19 09:18 Zoloft PO 50 mg DAILY [facility] Administration Sodium Chloride 10 ml 06/04/19 21:00 06/05/19 09:19 Flush - Normal Saline IVF 10 ml Q12HR [facility] Administration Valsartan 320 mg 05/31/19 09:00 06/05/19 09:19 Diovan PO 320 mg DAILY [facility] Administration - Exam General Appearance: NAD Heart: RRR, no gallops Respiratory: no wheezes, no rales Gastrointestinal: soft, non-tender, normal bowel sounds Extremities: no cyanosis Hosp A/P - Plan DVT proph w/lovenox, DVT proph w/SCDs 1. Acute on chronic hypoxic respiratory failure. 2. Acute on chronic diastolic heart failure exacerbation. 3. Inoperable CAD./Non-ST elevation myocardial infarction 4. Chronic obstructive pulmonary disease exacerbation. 5. Pneumonia, suspected gram-negative. 6. Morbid obesity with a BMI of 40.3. 7. Diabetes mellitus type 2. 8. Hypokalemia 9. Obstructive sleep apnea. 10. History of cerebrovascular accident. 11. Anxiety. 12. Hypernatremia. 13. Chronic kidney disease stage 3. PLAN: Replace Potassium Cont ASA/Plavix/NTG patch and Lovenox per Cardiology Cont Doxycycline Resume home CPAP - Awaiting family to bring home CPAP Cont therapy HHC at dc AM labs DC home if ok with Cardiology
[2019-06-05] MEDS: HumaLOG 300 UNITS/3 ML VIAL SC PRN (16:40)
[2019-06-05] MEDS: Atorvastatin Calcium 40 MG TAB PO SCH (20:48)
[2019-06-05] MEDS: Insulin Glargine 30 UNITS in Pre-Filled Syringe 1 EACH SC SCH (20:49)
[2019-06-06 05:13] LABS: Hemoglobin 10.8 g/dL (12.0-16.0); Platelet Count 258 thou/uL (130-400)
[2019-06-06 05:32] LABS: Anion Gap 12 mmol/L (10-20); BUN (Urea Nitrogen) 36 mg/dL (9.8-20.1); Calc. Creatinine Clearance 156 mL/min (70-130); Carbon Dioxide 23 mmol/L (22-29); Chloride 110 mmol/L (98-107); Estimated GFR-MDRD 40; Glucose 109 mg/dL (70-105); Potassium 3.8 mmol/L (3.5-5.1); Sodium 141 mmol/L (136-145)
[2019-06-06] MEDS: Nitroglycerin 2% Ointment 1 INCH/1 GM Packet TOP SCH ×2 (08:07→14:20)
[2019-06-06] MEDS: Senokot S 8.6-50 MG TAB PO SCH ×2 (08:33→22:01)
[2019-06-06] MEDS: Pregabalin 50 MG CAP PO SCH ×3 (08:35→22:02)
[2019-06-06] MEDS: Aspirin Chewable 81 MG TAB PO SCH (08:37)
[2019-06-06] MEDS: Doxycycline 100 MG CAP PO SCH ×2 (08:37→22:00)
[2019-06-06] MEDS: Clopidogrel Bisulfate 75 MG TAB PO SCH (08:38)
[2019-06-06] MEDS: Enoxaparin Sodium 40 MG/0.4 ML SYRINGE SC SCH ×2 (08:40→22:00)
[2019-06-06] MEDS ORDERED: HumaLOG 300 UNITS/3 ML VIAL SC PRN (08:54)
[2019-06-06] MEDS: Insulin Glargine 25 UNITS in Pre-Filled Syringe 1 EACH SC SCH ×2 (09:56→22:00)
--- NOTE | 2019-06-06 10:08 | PRG ---
DATE OF SERVICE: 06/06/2019 SUBJECTIVE: Kayla Hu is a 53-year-old female who is doing better. OBJECTIVE: VITAL SIGNS: Temperature 98, pulse 96, respiratory rate 16, saturations 96% on room air, blood pressure 120/67. CHEST: No wheezing or crackles. CARDIAC: Normal S1, S2. ABDOMEN: No masses. LABORATORY DATA: Creatinine 1.64. ASSESSMENT: Respiratory failure, obesity, renal failure, hypertension, chronic obstructive pulmonary disease. PLAN: Pulmonary standpoint of view, home any time. Follow up with the primary care physician. Job ID: [id number]
[2019-06-06] MEDS: Carvedilol 25 MG TAB PO SCH ×2 (11:29→18:11)
[2019-06-06] MEDS: Amlodipine 10 MG TAB PO SCH (11:29)
[2019-06-06] MEDS: Valsartan 80 MG TAB PO SCH (11:29)
[2019-06-06] MEDS: hydrALAZINE 25 MG TAB PO SCH ×3 (11:29→22:00)
--- NOTE | 2019-06-06 17:01 | PDOC.HOSPP ---
- Subjective Encounter Date: 06/06/19 Encounter Time: 10:30 Subjective: Patient seen and examined for NSTEMI. No CP/SOB. No other complaints. No overnight events - Objective Vital Signs & Weight: Vital Signs (12 hours) Temp Pulse Pulse Pulse Resp BP BP 06/06/19 15:59 98.0 F 83 16 06/06/19 14:10 84 16 06/06/19 11:34 91 86 188/86 H 135/76 06/06/19 11:24 97.9 F 86 16 06/06/19 10:39 82 16 06/06/19 08:28 06/06/19 08:27 98.5 F 90 16 06/06/19 06:51 87 16 BP BP Pulse Ox 06/06/19 15:59 136/75 95 06/06/19 14:10 97 06/06/19 11:34 169/83 H 06/06/19 11:24 168/79 H 96 06/06/19 10:39 96 06/06/19 08:28 96 06/06/19 08:27 124/67 96 06/06/19 06:51 96 Weight Admit Weight 245 lb 9.6 oz Weight 242 lb Most Recent Monitor Data Heart Rate from ECG 89 NIBP 130/85 NIBP BP-Mean 100 Respiration from ECG 16 SpO2 100 I&O: 06/05/19 06/06/19 06/07/19 06:59 06:59 06:59 Intake Total 1450 720 Output Total 1150 650 Balance 300 70 Result Diagrams: 06/06/19 04:29 06/06/19 04:29 Additional Labs: Accuchecks 06/05/19 06/05/19 06/05/19 20:15 16:52 16:42 POC Glucose 165 H 163 H 167 H 06/05/19 06/03/19 11:00 11:54 POC Glucose 152 H 169 H EKG Reviewed by me: Yes (Tele SR) Hospitalist ROS - Review of Systems Cardiovascular: denies: chest pain, palpitations, orthopnea, paroxysmal noc. dyspnea, edema, light headedness, other Gastrointestinal: denies: nausea, vomiting, abdominal pain, diarrhea, constipation, melena, hematochezia, other - Medication Medications: Active Medications Generic Name Dose Route Start Last Admin Trade Name Freq PRN Reason Stop Dose Admin Albuterol/Ipratropium 3 ml 04/14/20 10:30 06/06/19 14:10 Duoneb NEB 3 ml [id number] MAXINE Administration Amlodipine Besylate 10 mg 06/04/19 09:00 06/06/19 11:29 Norvasc PO 10 mg DAILY [facility] Administration Aspirin 81 mg 05/31/19 09:00 06/06/19 08:37 Aspirin Chewable PO 81 mg DAILY [facility] Administration Atorvastatin Calcium 80 mg 05/31/19 21:00 06/05/19 20:48 Lipitor PO 80 mg HS MAXINE Administration Carvedilol 25 mg 05/31/19 08:00 06/06/19 11:29 Coreg PO 25 mg BID-WM [facility] Administration Clopidogrel Bisulfate 75 mg 05/31/19 09:00 06/06/19 08:38 Plavix PO 75 mg DAILY [facility] Administration Doxycycline Hyclate 100 mg 06/03/19 09:00 06/06/19 08:37 Vibramycin PO 06/10/19 09:01 100 mg BID [facility] Administration Enoxaparin Sodium 40 mg 06/03/19 09:00 06/06/19 08:40 Lovenox SC 40 mg BID [facility] Administration Hydralazine HCl 50 mg 06/02/19 09:00 06/06/19 16:03 Apresoline PO 50 mg TID [facility] Administration Insulin Glargine 25 units/ 0.25 mls @ 0 mls/hr 06/06/19 09:00 06/06/19 09:56 Miscellaneous Medication SC 0.25 mls BID [facility] Administration Insulin Human Lispro 0 units 06/06/19 08:54 06/06/19 11:27 Humalog SC 3 unit .MILD SLIDING SCALE PRN Administration Mild Correctional Scale Loratadine 10 mg 06/04/19 09:05 06/04/19 09:53 Claritin PO 10 mg DAILYPRN PRN Administration Sinus Symptoms Nitroglycerin 1 inch 05/31/19 22:00 06/06/19 14:20 Nitro-Bid 2% Ointment TOP Not Given Q8HR [facility] Pantoprazole Sodium 40 mg 05/31/19 09:00 06/06/19 08:37 Protonix PO 40 mg DAILY [facility] Administration Pregabalin 100 mg 05/31/19 09:00 06/06/19 16:03 Lyrica PO 100 mg TID [facility] Administration Senna/Docusate Sodium 2 tab 06/04/19 21:00 06/06/19 08:33 Senokot S PO 2 tab BID [facility] Administration Sertraline HCl 50 mg 05/31/19 09:00 06/06/19 08:37 Zoloft PO 50 mg DAILY [facility] Administration Sodium Chloride 10 ml 06/04/19 21:00 06/06/19 08:41 Flush - Normal Saline IVF Not Given Q12HR [facility] Valsartan 320 mg 05/31/19 09:00 06/06/19 11:29 Diovan PO 320 mg DAILY [facility] Administration - Exam General Appearance: NAD Neck: supple Heart: RRR, no gallops Respiratory: no wheezes, no rales, rhonchi Gastrointestinal: non-tender, non-distended, normal bowel sounds Extremities: no cyanosis, no clubbing Hosp A/P - Plan DVT proph w/lovenox, DVT proph w/SCDs 1. Acute on chronic hypoxic respiratory failure. 2. Acute on chronic diastolic heart failure exacerbation. 3. Inoperable CAD/NSTEMI 4. COPD exacerbation. 5. Pneumonia, suspected gram-negative. 6. Morbid obesity with a BMI of 40.3. 7. Diabetes mellitus type 2. 8. Hypokalemia 9. DOMINIC. 10. History of CVA. 11. Anxiety. 12. Hypernatremia. 13. Chronic kidney disease stage 3. PLAN: Cont ASA/Plavix/Coreg/ARB on NTG patch and Lovenox per Cardiology Cont Doxycycline Resume home CPAP DC planning AM labs DC home if ok with Cardiology
--- NOTE | 2019-06-06 18:25 | DIS ---
DATE OF ADMISSION: 05/31/2019 DATE OF DISCHARGE: 06/06/2019 DISCHARGE DISPOSITION: Home. DISCHARGE FOLLOWUP: 1. Follow up with primary [facility] physician at [facility] in 1 week. 2. Follow up with Cardiology in 2 to 3 weeks. 3. Basic metabolic profile after 1 week is recommended. Primary care physician advised to follow. DISCHARGE CONDITION: The patient was extensively counseled on CHF. The patient was seen and examined on the day of discharge. Please refer to my progress note for details. DISCHARGE MEDICATIONS: 1. Aspirin 81 mg daily. 2. Plavix 75 mg daily. 3. Carvedilol 25 mg b.i.d. 4. Valsartan 320 mg daily. 5. Lasix 40 mg daily. 6. Hydralazine 25 mg 3 times a day. 7. Amlodipine 5 mg daily. 8. Zoloft 50 mg daily. 9. Lipitor 80 mg at bedtime. 10. Humalog 20 units 3 times daily. 11. Lantus 50 units b.i.d. 12. Nitroglycerin sublingual as needed. 13. Invokana 300 mg daily. The patient was advised to monitor blood sugar on a daily basis. INPATIENT CONSULTANTS: 1. Pulmonary, Dr. Quezada. 2. Cardiology, Dr. Lebron. DIAGNOSTIC TESTS: Echocardiogram showed ejection fraction 55% to 60% with grade 3 diastolic heart failure with mild mitral regurgitation. BRIEF HOSPITAL COURSE: The patient is a 53-year-old female with inoperable coronary artery disease, chronic diastolic heart failure, COPD, hypertension, hyperlipidemia, diabetes mellitus type 2, and morbid obesity, presented to the hospital on May 31, 2019, with shortness of breath. Workup was consistent with congestive heart failure exacerbation along with non ST elevation RI. Later on, Latoya Valencia was called and she was subsequently intubated. She was monitored in the intensive care unit. Three to four days later, she was extubated and was transferred to the telemetry unit. Her medications have been optimized. She was started on Lovenox that has been discontinued. Lifestyle modification was emphasized. She was also placed on antibiotics for pneumonia. FINAL DIAGNOSES: 1. Acute on chronic hypoxic respiratory failure. 2. Acute on chronic diastolic heart failure exacerbation. 3. Non-ST elevation myocardial infarction. 4. History of inoperable coronary artery disease. 5. Chronic obstructive pulmonary disease exacerbation. 6. Pneumonia, suspected gram negative, present on admission. 7. Morbid obesity with a BMI 40. 8. Diabetes mellitus type 2. 9. Hypokalemia, replaced. 10. Obstructive sleep apnea, on CPAP. 11. History of cerebrovascular accident. 12. Anxiety. 13. Chronic kidney disease, stage 3. 14. Hypernatremia, resolved. 15. Hyperchloremia. TIME SPENT: Time coordinating the discharge of this patient was 35 minutes. Job ID: [id number]
--- NOTE | 2019-06-06 18:31 | PRG ---
DATE OF SERVICE: 06/06/2019 SUBJECTIVE: Ms. Hu is feeling very well, breathing normally, wants to go home. No chest pain or pressure. OBJECTIVE: VITAL SIGNS: Her blood pressure is variable. Earlier in the day, it was 135/76; within a very short time after that, it was 188/86. Pulse is 80. LUNGS: Clear. CARDIAC: Normal S1, normal S2. ABDOMEN: Soft, nontender. EXTREMITIES: No edema. ASSESSMENT: 1. Congestive heart failure, diastolic, improved. 2. Pneumonia, improved. 3. Severe coronary disease. PLAN: She is going to go home on, 1. Amlodipine 10 mg a day. 2. Carvedilol 25 mg twice a day. 3. Plavix 75 mg a day. 4. Aspirin 81 mg a day. 5. Furosemide 40 mg a day. 6. Valsartan 320 mg a day. 7. Atorvastatin 80 mg a day. Job ID: [id number]
[2019-06-06] MEDS: Atorvastatin Calcium 40 MG TAB PO SCH (22:00)
[2019-06-07 04:41] LABS: Hemoglobin 10.7 g/dL (12.0-16.0); Platelet Count 237 thou/uL (130-400)
[2019-06-07 04:58] LABS: Anion Gap 11 mmol/L (10-20); BUN (Urea Nitrogen) 32 mg/dL (9.8-20.1); Calc. Creatinine Clearance 85 mL/min (70-130); Calcium 8.2 mg/dL (7.8-10.44); Carbon Dioxide 26 mmol/L (22-29); Chloride 108 mmol/L (98-107); Estimated GFR-MDRD 50; Glucose 156 mg/dL (70-105); Potassium 3.7 mmol/L (3.5-5.1); Sodium 141 mmol/L (136-145)
[2019-06-07 06:27] VITALS: BMI 46.0
[2019-06-07] MEDS ORDERED: Furosemide 40 MG TAB PO SCH (07:30)
[2019-06-07] MEDS ORDERED: Potassium Chloride 20 MEQ TAB PO SCH (08:30)
[2019-06-07] MEDS: Valsartan 80 MG TAB PO SCH (08:50)
[2019-06-07] MEDS: Amlodipine 10 MG TAB PO SCH (08:50)
[2019-06-07] MEDS: Clopidogrel Bisulfate 75 MG TAB PO SCH (08:51)
[2019-06-07] MEDS: Pregabalin 50 MG CAP PO SCH (08:52)
[2019-06-07] MEDS: Doxycycline 100 MG CAP PO SCH (08:52)
[2019-06-07] MEDS: Aspirin Chewable 81 MG TAB PO SCH (08:52)
[2019-06-07] MEDS: Carvedilol 25 MG TAB PO SCH (08:52)
[2019-06-07] MEDS: hydrALAZINE 25 MG TAB PO SCH (08:52)
[2019-06-07] MEDS: Senokot S 8.6-50 MG TAB PO SCH (08:53)
[2019-06-07] MEDS: Enoxaparin Sodium 40 MG/0.4 ML SYRINGE SC SCH (08:54)
[2019-06-07] MEDS: Insulin Glargine 25 UNITS in Pre-Filled Syringe 1 EACH SC SCH (08:58)
--- NOTE | 2019-06-07 10:07 | PRG ---
DATE OF SERVICE: 06/07/2019 SUBJECTIVE: She is better, less short of breath, less cough. No wheezing. OBJECTIVE: VITAL SIGNS: Temperature 97, pulse 92, respirations 16, saturations are 98% on room air, and blood pressure 136/77. CHEST: No wheezing or crackles. CARDIAC: Normal S1, S2. No gallops. ABDOMEN: No masses. ASSESSMENT AND PLAN: Chronic obstructive pulmonary disease; respiratory failure; pneumonia, stable; morbid obesity, probably sleep apnea. she is probably going to need a sleep study. Follow up with the primary care physician. Job ID: [id number]
[2019-06-07 10:53] VITALS: BP 144/84; TEMP 97.5
--- NOTE | 2019-06-07 13:49 | DIS ---
DATE OF ADMISSION: 05/31/2019 DATE OF DISCHARGE: 06/07/2019 Please refer to the discharge summary dated June 06, 2019, for details on the hospitalization. Potassium chloride 10 mEq was added to the discharge medication. Job ID: [id number]
[2019-06-08] MEDS ORDERED: Potassium Chloride 10 MEQ TAB PO SCH (08:00)
== END 2019-06-07 11:16 | disposition home health service (06) | DRG 208 ==
LOC: ERS 01:47 → 2SW 02:31 → CCU 09:31 → 2NO 06-03 13:55
PROVIDERS: ADMIT Emergency Medicine; ATTEND Emergency Medicine
PROC: 5A1945Z Respiratory Ventilation, 24-96 Consecutive Hours (ICD-10-PCS; principal; 2019-06-03)
PROC: 0BH17EZ Insertion of Endotracheal Airway into Trachea, Via Natural or Artificial Opening (ICD-10-PCS; 2019-06-03)
DX: J44.1 Chronic obstructive pulmonary disease with (acute) exacerbation (principal); J96.21 Acute and chronic respiratory failure with hypoxia; I50.33 Acute on chronic diastolic (congestive) heart failure; J15.6 Pneumonia due to other Gram-negative bacteria; I21.A1 Myocardial infarction type 2; J96.22 Acute and chronic respiratory failure with hypercapnia; Z68.41 Body mass index [BMI] 40.0-44.9, adult; I69.354 Hemiplegia and hemiparesis following cerebral infarction affecting left non-dominant side; E87.0 Hyperosmolality and hypernatremia; I13.0 Hypertensive heart and chronic kidney disease with heart failure and stage 1 through stage 4 chronic kidney disease, or unspecified chronic kidney disease; J45.901 Unspecified asthma with (acute) exacerbation; E66.2 Morbid (severe) obesity with alveolar hypoventilation; J44.0 Chronic obstructive pulmonary disease with (acute) lower respiratory infection; I25.10 Atherosclerotic heart disease of native coronary artery without angina pectoris; E87.6 Hypokalemia; F41.9 Anxiety disorder, unspecified; E11.22 Type 2 diabetes mellitus with diabetic chronic kidney disease; N18.3 Chronic kidney disease, stage 3 (moderate); E87.8 Other disorders of electrolyte and fluid balance, not elsewhere classified; E11.40 Type 2 diabetes mellitus with diabetic neuropathy, unspecified; E78.5 Hyperlipidemia, unspecified; M79.7 Fibromyalgia; G89.29 Other chronic pain; M54.9 Dorsalgia, unspecified; F32.9 Major depressive disorder, single episode, unspecified; F17.210 Nicotine dependence, cigarettes, uncomplicated; K21.9 Gastro-esophageal reflux disease without esophagitis; Z99.81 Dependence on supplemental oxygen; I25.2 Old myocardial infarction; Z85.42 Personal history of malignant neoplasm of other parts of uterus; Z90.710 Acquired absence of both cervix and uterus; Z79.899 Other long term (current) drug therapy; Z79.82 Long term (current) use of aspirin; Z79.01 Long term (current) use of anticoagulants; Z79.4 Long term (current) use of insulin; Z79.02 Long term (current) use of antithrombotics/antiplatelets
CPT/HCPCS: 36415; 36416; 71045; 80048; 80053; 82805; 83605; 83735; 84443; 84484; 85014; 85018; 85025; 85049; 85610; 85730; 93005; 93010; 93306; 94002; 94003; 94640; 96372; 96374; J0360; J0456; J0696; J1650; J1815; J1940; J2060; J2370; J2704; J2920; J3010; J3480; J3490; J7050; J7611; J7620